=== PATIENT | male | born 1935 | race Caucasian/White ===

== ENCOUNTER 2018-11-29 22:19 | Emergency (ER) | payer BC, MEDICARE, OTHER ==
[2018-11-29] MEDS ORDERED: NS 0.9% 1000 ML** 1,000 ML IV ONE (23:19)
--- OUTSIDE RECORDS SUMMARY | 2018-11-29 23:35 | XMS REPORT | Continuity of Care Document ---
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 Payers Date Identification Numbers Payment Provider Subscriber Effective: 2018 Policy Number: [id number] [employer] Tito Mcintosh Options PayID: [id number] [address] Policy Number: [id number] [facility] Tito Mcintosh Group Number: NO CHARGE [facility] PayID: [id number] [place] [address] Problems Active Problems Provider Date Benign essential hypertension Onset: 10/19/2006 Allergic asthma without status Rosario Greenberg MD Onset: 02/16/2013 asthmaticus Essential hypertension Rosario Greenberg MD Onset: 02/16/2013 Bladder muscle dysfunction - Rosario Greenberg MD Onset: 02/16/2013 overactive Obesity Rosario Greenberg MD Onset: 02/16/2013 Allergic rhinitis due to pollen Rosario Greenberg MD Onset: 02/16/2013 Uncomplicated moderate persistent Bg Larios PA Onset: 10/09/2015 asthma Uncomplicated moderate persistent Haether Noble RN [facility] Onset: 2016 asthma Squamous cell carcinoma of skin of Bg Larios PA Onset: 11/15/2018 face Note: 10/2018 -- neg but 2mm margins Family History Date Family Member(s) Observation Comments Father due to Cancer, Lung () Mother due to Cancer, Colon () Social History Type Date Description Comments Sex Unknown Marital Status Marital Status Occupation Retired Tobacco Use Start: Unknown Nonsmoker ETOH Use Occasionally consumes alcohol ETOH Use Occasionally consumes alcohol Tobacco Use Start: Unknown Patient has never smoked Recreational Drug Use Never Used Drugs Tobacco Use Start: Unknown Patient has never smoked Smoking Status Reviewed: 11/18/18 Patient has never smoked Allergies, Adverse Reactions, Alerts Active Allergies Reaction Severity Comments Date Penicillin 02/04/2011 Inactive Allergies PCN 08/23/2004 Medications Active Medications SIG Qnty Indications Ordering Date Provider Celecoxib Take One Capsule 90caps M17.9 Heather Noble 11/10/2018 200mg By Mouth Once C RN [employer] Capsules Daily as Needed For Pain Santyl apply to wound 90gm M70.872 Gustabo, 11/02/2018 250Unit/GM area bid after Lilly Rascon MD Ointment bathing/soaking LEFT foot and cover [place] Cushions apply to LEFT foot 100units M70.872 Gustabo, 10/26/2018 Pads around wound to Lilly Rascon MD remove all pressure. Toviaz Heather Noble 09/23/2018 8mg Tablets ER C, RN [employer] 24HR Breo Ellipta 1 puff daily sample Heather Noble 08/18/2018 Lita RN [employer] 100-25mcg/Inh Aerosol Albuterol Sulfate via nebulizer 90Vials J45.40 Heather Noble 08/18/2018 treatment three Lita RN [employer] (2.5mg/3ML) 0.083% times a day as Nebulizer needed for asthma Olopatadine HCL 1-2 gtt once a day 2.500ml T78.49xA Heather Noble 2018 0.2% for eye allergy sx C, RN MS ULISES Solution Asprin One A Day Stroke Heather Noble 06/17/2018 325 Prevention C, RN [employer] Lisinopril-Hydrochlo 1 by mouth every 90tabs I10 Heather Noble 2018 rothiazide day C, RN [employer] 10-12.5mg Tablets Cpap For [place] Heather Noble 05/27/2018 Lita RN [employer] Clopidogrel 1 by mouth every 90tabs Heather Noble 05/27/2018 Bisulfate day C, RN [employer] 75mg Tablets Atorvastatin Calcium 1 by mouth every 90tabs Hetaher Noble 05/27/2018 day For Stroke VERO London [employer] 80mg Tablets Prevention/Cholest kendra Wrist Brace Carpal 1units G56.00 Rosario Greenberg, 02/21/2014 Tunnel/One Size LEFT And RIGHT Alexsandrac Zyrtec Allergy 1 tab po qday prn 30caps Rosario Greenberg, 02/16/2013 10mg MD Capsules History Medications Collagenase apply to wound q 2units Gustabo, 10/28/2018 - Powder day with Lilly Rascon MD 11/02/2018 wet-to-dry dressing Santyl apply to wound 90gm M70.872 Gustabo, 10/26/2018 - 250Unit/GM Ointment area bid after Lilly Rascon MD 10/28/2018 bathing/soaking LEFT foot and cover Prednisone take 3 tablets by 18tabs M25.551 David, 09/24/2018 - 20mg Tablets mouth for 3 days, DO Eduardo 10/13/2018 then 2 tablets by mouth for 3 days, then 1 tablet by mouth for 3 days Celecoxib Take One Capsule 90caps Real, 03/30/2018 - 200mg Capsules By Mouth Once A Heather London RN 05/27/2018 Day as Needed For [employer] Arthritis Pain Breo Ellipta 1 inhalation once samples Real, 11/06/2017 - 200-25mcg/Inh daily Heather London RN 06/17/2018 Aerosol [employer] Doxycycline Monohydrate 1 cap by mouth 14caps L03.115 Gustabo, 01/08/2017 - twice a day Lilly Rascon MD 01/15/2017 100mg Capsules Vesicare One Tab Daily ( N32.81 Real, 06/25/2016 - 10mg Tablets [place]) Heather London RN 09/23/2017 [employer] Oxybutynin Chloride ER 1 by mouth every N32.81 Gustabo, 01/07/2016 - 15mg day Lilly Rascon MD 06/25/2016 Tablets ER 24HR Lisinopril-Hydrochlorot Take One Tablet 90tabs I10 Real, 05/04/2014 - hiazide By Mouth Once Heather London RN 06/17/2018 20-12.5mg Tablets Daily [employer] Chlorpheniramine 477.0 Rosario Greenberg 02/21/2014 - [address] MD 02/20/2016 4mg Tablets Gabapentin take 1 capsule by 90caps 354.0 Rosario Greenberg 02/21/2014 - 300mg Capsules mouth three times MD Ariana 06/07/2014 daily - free samples Celebrex Take One Capsule 180caps M17.9 Real, 02/16/2013 - 200mg Capsules By Mouth Twice A Heather London RN 11/10/2018 Day [employer] [place]-3 Rosario Greenberg 02/16/2013 - Capsules MD Ariana 10/12/2014 ChlorpheniraRosario Knowles 02/16/[address] - [address] MD 02/21/2014 4mg Tablets Zyrtec Allergy 1 tab po qday prn 30caps 477.0 Rosario Greenberg 02/16/2013 - 10mg MD Ariana 10/12/2014 Capsules Aspirin 81 Rosario Greenberg 02/16/2013 - MD Ariana 06/17/2018 [place] 3 Rosario Greenberg 02/16/2013 - Capsules MD Ariana 06/17/[address] 1 po qd Rosario Greenberg 02/16/2013 - 81mg Tablets DR Ariana MD 05/27/2018 ChlorphenRosario Charles 02/16/2013 - [address] MD 08/18/2018 4mg Tablets Oxybutynin Chloride ER 1 tab qHS Rosario Greenberg 02/16/2013 - 10mg MD Ariana 06/17/2018 Tablets ER 24HR Advair Diskus 1 puff qday Rosario Greenberg 02/16/2013 - MD Ariana 05/27/2018 250-50mcg/Dose Aerosol Celebrex 1 po qd other day 30caps Rosario Greenberg 02/16/2013 - 200mg Capsules MD Ariana 03/30/2018 Lisinopril/Hydrochlorot 1 po qd 90tabs Rosario Greenberg 02/16/2013 - hiazide MD Ariana 05/27/2018 20-12.5mg Tablets Azithromycin 2 tabs day one 6tabs 786.2 Real, 06/15/2012 - 250mg Tablets and 1 tab daily Heather London RN 06/28/2012 till gone [employer] 465.9 Montelukast Sodium Take One Tablet 30tabs Regino, 02/16/2012 - By Mouth Once MD Mikhail 02/16/2013 10mg Tablets Daily Permethrin apply head to 60gm 133.0 Lilly Montejo 01/09/2012 - 5% Cream toe, leave on 8 MD Abiodun 02/16/2013 hrs rinse, repeat in 1 wk Singulair 1 po qd 30tabs Trabnaveen, 12/10/2011 - 10mg MD Mikhail 02/16/2012 Tablets Oxybutynin Chloride 1 by mouth 90tabs N32.81 Lilly Montejo 08/15/2011 - ER every day MD Abiodun 01/07/2016 10mg Tablets ER 24HR Lisinopril/Hydrochl Take 1 Tablet 90tabs 401.1 Rosario Greenberg 08/15/2011 - orothiazide By Mouth Once 05/04/2014 Daily 20-12.5mg Tablets Bactrim DS one tab po bid 20tabs 682.8 Heather Noble 02/27/2010 - for 10 days VERO London MS [facility] 08/15/2011 800-160mg Tablets Cpap Machine Dx: osas 1units Regino, 06/04/2009 - MD Mikhail 07/04/2009 Avelox 1 PO qd 5tabs 682.8 Lilly Montejo 06/09/2008 - 400mg MD Abiodun 12/11/2008 Tablets Enablex 1 PO qd 30tabs Trabnaveen, 10/01/2007 - 7.5mg MD Mikhail 08/15/2011 Tablets ER 24HR Lisinopril/Hydrochl 1 po qd 90tabs 401.1 Regino, 06/11/2007 - orothiazide MD Mikhail 08/15/2011 20-12.5 Tablets Benicar 1 po qd 30tabs 401.1 Regino, 2007 - 20mg MD Mikhail 06/11/2007 Tablets Avapro 1 po qd 30tabs 401.1 Regino, 06/03/2006 - 300mg MD Mikhail 2007 Tablets Levaquin qd 7tabs 527.2 Heather Noble 02/26/2005 - 500mg Lita RN [employer] 08/25/2005 Tablets Glucovance 1 po bid 60tabs Trabnaveen, 02/12/2005 - MD Mikhail 02/24/2005 2.5mg;500 mg Tablets Darvocet N 100 1-2 po q6h prn 60tabs 715.90 Trabout, 08/23/2004 - pain MD Mikhail 10/01/2007 100mg;650 mg Tablets Triamterene & HCTZ 1 po qd 30caps Trabout, 06/24/2004 - MD Mikhail 2007 25mg;37.5 mg Capsules Zyrtec 1 po qd prn 30tabs Trabout, 06/24/2004 - 10mg Tablets allergy sx MD Mikhail 2007 Celebrex Take One 90caps 715.36 Dionicio Rosario Yin, 06/24/2004 - 200mg Capsule By 02/21/2014 Capsules Mouth Once Daily Advair Diskus inhale 1 puff 180units J45.40 Heather Noble 06/24/2004 - by mouth twice CVERO [employer] 08/18/2018 250-50mcg/Dose a day. Aerosol Atacand 1 po qd 30tabs 401.1 Trabout, 05/10/2004 - 32mg MD Mikhail 06/03/2006 Tablets Myrbetriq 1 by mouth Unknown - 50mg every day 09/23/2018 Tablets ER 24HR Medications Administered in Office Medication SIG Qnty Indications Ordering Provider Date Inj Triamcinolone (Kenalog) Im 10 Eduardo Hernandez DO 10/13/2018 MG, Injection Immunizations CPT Code Status Date Vaccine Lot # [id number] Given 05/24/2018 Influenza Vac, Quadrivalent, Split, 0.5mL Dosage, Im Use 78697 Given 05/24/2018 Prevnar 13 Pneumococal Conjugate Vaccine 35669 Given 03/16/2017 Influenza Vac, Quadrivalent, Split, 0.5mL Dosage, [id number] Im Use 32308 Given 03/16/2017 Influenza Vac, Quadrivalent, Split, 0.5mL Dosage, Im Use Q2038 Given 06/07/2014 Fluzone Trivalent Immunization [id number] Q2038 Given 06/15/2012 Fluzone Trivalent Immunization [id number] Q2038 Given 02/04/2011 Fluzone Trivalent Immunization 41479 Given 02/04/2011 Afluria Or Fluvirin Flu Vac Intramuscular 27236 Given 02/04/2011 Afluria Or Fluvirin Flu Vac Intramuscular [id number] 21378 Given 02/28/2010 Afluria Or Fluvirin Flu Vac Intramuscular [id number] 28536 Given 02/27/2010 Tetanus And Diptheria Toxoids For Adult [id number] Use-preservative free [id number] Refused 10/22/2016 Zoster (Zostavax) [id number] Refused 10/22/2016 Pneumococcal 23 Immunization Adult Or Immunosuppressed Patient [id number] Refused 10/22/2016 Prevnar 13 Pneumococal Conjugate Vaccine 33890 Refused 06/25/2016 Influenza Vac, Quadrivalent, Split, 0.5mL Dosage, Im Use Vital Signs Date Vital Result Comment 11/18/2018 1:24pm Weight 208.00 lb Heart Rate 91 /min BP Systolic 94 mmHg BP Diastolic 62 mmHg Height 70 inches 5'10" BMI (Body Mass Index) 29.8 kg/m2 11/10/2018 9:51am Weight 206.00 lb Heart Rate 64 /min BP Systolic 133 mmHg BP Diastolic 71 mmHg Height 70 inches 5'10" BMI (Body Mass Index) 29.6 kg/m2 10/26/2018 12:20pm Weight 214.00 lb Heart Rate 80 /min BP Systolic 128 mmHg BP Diastolic 80 mmHg Height 70 inches 5'10" BMI (Body Mass Index) 30.7 kg/m2 10/13/2018 9:24am Weight 210.00 lb Heart Rate 81 /min Height 70 inches 5'10" BMI (Body Mass Index) 30.1 kg/m2 Pain Level 0 RIGHT hip 09/24/2018 11:23am Weight 210.00 lb Heart Rate 76 /min Height 67 inches 5'7" BMI (Body Mass Index) 32.9 kg/m2 Pain Level 4 09/23/2018 12:39pm Weight 211.50 lb Heart Rate 88 /min BP Systolic 115 mmHg BP Diastolic 71 mmHg Height 67 inches 5'7" BMI (Body Mass Index) 33.1 kg/m2 08/18/2018 1:17pm Weight 213.19 lb Heart Rate 77 /min BP Systolic 107 mmHg BP Diastolic 64 mmHg Height 67 inches 5'7" BMI (Body Mass Index) 33.4 kg/m2 06/17/2018 2:20pm Weight 209.00 lb Heart Rate 71 /min BP Systolic 143 mmHg BP Diastolic 70 mmHg Height 67 inches 5'7" BMI (Body Mass Index) 32.7 kg/m2 11/06/2017 10:00am Weight 207.25 lb Heart Rate 84 /min BP Systolic 125 mmHg BP Diastolic 85 mmHg Height 67 inches 5'7" BMI (Body Mass Index) 32.5 kg/m2 05/08/2017 11:20am Weight 206.31 lb Heart Rate 68 /min BP Systolic 130 mmHg BP Diastolic 79 mmHg Height 67 inches 5'7" BMI (Body Mass Index) 32.3 kg/m2 03/16/2017 10:28am Weight 211.00 lb Heart Rate 88 /min BP Systolic 112 mmHg BP Diastolic 77 mmHg Height 67 inches 5'7" BMI (Body Mass Index) 33.0 kg/m2 Urine Dipstick - Blood NEGATIVE Urine Dipstick - Protein NEGATIVE Urine Dipstick - Glucose NEGATIVE Urine Dipstick - Leukocytes NEGATIVE 01/08/2017 1:39pm Weight 209.38 lb Heart Rate 100 /min BP Systolic 139 mmHg BP Diastolic 85 mmHg Height 67 inches 5'7" BMI (Body Mass Index) 32.8 kg/m2 10/22/2016 1:10pm Weight 211.38 lb Heart Rate 83 /min BP Systolic 123 mmHg BP Diastolic 76 mmHg Height 67 inches 5'7" BMI (Body Mass Index) 33.1 kg/m2 06/25/2016 2:07pm Weight 215.50 lb Heart Rate 96 /min BP Systolic 128 mmHg BP Diastolic 80 mmHg Height 67 inches 5'7" BMI (Body Mass Index) 33.7 kg/m2 02/20/2016 1:22pm Body Temperature 97.0 F Weight 213.50 lb Heart Rate 70 /min BP Systolic 131 mmHg BP Diastolic 77 mmHg Height 70 inches 5'10" BMI (Body Mass Index) 30.6 kg/m2 10/09/2015 2:44pm Weight 216.25 lb Heart Rate 71 /min BP Systolic 137 mmHg BP Diastolic 83 mmHg Height 70 inches 5'10" BMI (Body Mass Index) 31.0 kg/m2 Urine Dipstick - Blood NEGATIVE Urine Dipstick - Protein NEGATIVE Urine Dipstick - Glucose NEGATIVE Urine Dipstick - Leukocytes NEGATIVE Right Visual Acuity Distance 20/25 Left Visual Acuity Distance 20/25 Both 20/20 03/15/2015 1:44pm Weight 219.38 lb Heart Rate 64 /min BP Systolic 129 mmHg BP Diastolic 69 mmHg Height 68 inches 5'8" BMI (Body Mass Index) 33.4 kg/m2 Urine Dipstick - Blood NEGATIVE Urine Dipstick - Protein NEGATIVE Urine Dipstick - Glucose NEGATIVE Urine Dipstick - Leukocytes NEGATIVE 10/12/2014 10:53am Weight 216.00 lb Heart Rate 80 /min BP Systolic 120 mmHg BP Diastolic 70 mmHg Height 70 inches 5'10" BMI (Body Mass Index) 31.0 kg/m2 09/11/2014 10:48am Weight 212.00 lb Heart Rate 63 /min BP Systolic 133 mmHg BP Diastolic 79 mmHg Height 70 inches 5'10" BMI (Body Mass Index) 30.4 kg/m2 08/07/2014 1:21pm Weight 212.00 lb Heart Rate 106 /min BP Systolic 144 mmHg BP Diastolic 95 mmHg Height 70 inches 5'10" BMI (Body Mass Index) 30.4 kg/m2 06/07/2014 1:07pm Weight 216.00 lb Heart Rate 87 /min BP Systolic 112 mmHg BP Diastolic 79 mmHg Height 70 inches 5'10" BMI (Body Mass Index) 31.0 kg/m2 02/21/2014 9:48am Weight 212.00 lb Heart Rate 70 /min BP Systolic 115 mmHg BP Diastolic 77 mmHg Height 70 inches 5'10" BMI (Body Mass Index) 30.4 kg/m2 Urine Dipstick - Blood NEGATIVE Urine Dipstick - Protein NEGATIVE Urine Dipstick - Glucose NEGATIVE Right Visual Acuity Distance 20/20 Left Visual Acuity Distance 20/20 Both 20/20 02/16/2013 10:44am Weight 224.00 lb Heart Rate 62 /min BP Systolic 127 mmHg BP Diastolic 73 mmHg Height 68 inches 5'8" BMI (Body Mass Index) 34.1 kg/m2 Urine Dipstick - Blood NEGATIVE Urine Dipstick - Protein NEGATIVE Urine Dipstick - Glucose NEGATIVE 06/28/2012 9:41am Weight 219.00 lb Heart Rate 63 /min BP Systolic 122 mmHg BP Diastolic 67 mmHg 06/15/2012 2:44pm Weight 219.00 lb Heart Rate 80 /min BP Systolic 122 mmHg BP Diastolic 78 mmHg 03/16/2012 3:49pm Weight 224.00 lb Heart Rate 84 /min BP Systolic 126 mmHg BP Diastolic 74 mmHg Height 68 inches 5'8" BMI (Body Mass Index) 34.1 kg/m2 01/09/2012 9:20am Weight 221.00 lb Heart Rate 72 /min BP Systolic 122 mmHg BP Diastolic 78 mmHg Height 70 inches 5'10" BMI (Body Mass Index) 31.7 kg/m2 12/10/2011 2:26pm Weight 220.00 lb Heart Rate 82 /min BP Systolic 140 mmHg BP Diastolic 78 mmHg 08/15/2011 12:57pm Weight 232.00 lb Heart Rate 86 /min BP Systolic 126 mmHg BP Diastolic 75 mmHg 02/04/2011 2:11pm Weight 220.00 lb Heart Rate 80 /min BP Systolic 136 mmHg BP Diastolic 78 mmHg Height 67.75 inches 5'7.75"With Shoes BMI (Body Mass Index) 33.7 kg/m2 03/05/2010 12:52pm Weight 233.00 lb Heart Rate 77 /min BP Systolic 110 mmHg BP Diastolic 66 mmHg 03/01/2010 4:05pm Body Temperature 97.4 F Weight 229.00 lb Heart Rate 80 /min BP Systolic 110 mmHg BP Diastolic 70 mmHg 04/18/2009 6:26pm Weight 227.00 lb Heart Rate 71 /min BP Systolic 136 mmHg BP Diastolic 72 mmHg 12/11/2008 10:10am Weight 233.00 lb Heart Rate 74 /min BP Systolic 115 mmHg BP Diastolic 72 mmHg 11/09/2008 9:24am Body Temperature 97.3 F Weight 234.00 lb Heart Rate 94 /min BP Systolic 113 mmHg BP Diastolic 70 mmHg 11/07/2008 11:18am Body Temperature 97.4 F Weight 236.00 lb Heart Rate 64 /min BP Systolic 118 mmHg BP Diastolic 68 mmHg 06/05/2008 10:00am Weight 231.00 lb Heart Rate 84 /min BP Systolic 113 mmHg BP Diastolic 73 mmHg Height 70 inches 5'10" BMI (Body Mass Index) 33.1 kg/m2 02/04/2008 9:48am Weight 248.00 lb Heart Rate 68 /min BP Systolic 110 mmHg BP Diastolic 62 mmHg Height 70 inches 5'10" BMI (Body Mass Index) 35.6 kg/m2 10/01/2007 10:51am Weight 246.00 lb Heart Rate 87 /min BP Systolic 116 mmHg BP Diastolic 66 mmHg Height 70 inches 5'10" BMI (Body Mass Index) 35.3 kg/m2 06/11/2007 1:42pm Heart Rate 75 /min BP Systolic 131 mmHg BP Diastolic 80 mmHg Height 70 inches 5'10" 2007 2:06pm Heart Rate 87 /min BP Systolic 126 mmHg BP Diastolic 74 mmHg Height 70 inches 5'10" 10/19/2006 2:08pm Heart Rate 90 /min BP Systolic 150 mmHg BP Diastolic 84 mmHg Height 70 inches 5'10" Urine Dipstick - Blood NEGATIVE Urine Dipstick - Protein NEGATIVE Urine Dipstick - Glucose NEGATIVE 09/30/2006 11:49am Heart Rate 80 /min BP Systolic 120 mmHg BP Diastolic 80 mmHg Height 68 inches 5'8" 09/21/2006 9:36am Weight 244.00 lb Heart Rate 80 /min BP Systolic 122 mmHg BP Diastolic 68 mmHg Height 68 inches 5'8" BMI (Body Mass Index) 37.1 kg/m2 07/06/2006 10:32am Weight 251.00 lb Heart Rate 70 /min BP Systolic 142 mmHg BP Diastolic 80 mmHg Height 68 inches 5'8" BMI (Body Mass Index) 38.2 kg/m2 02/27/2006 10:06am Weight 239.00 lb Heart Rate 62 /min BP Systolic 132 mmHg BP Diastolic 70 mmHg Height 68 inches 5'8" BMI (Body Mass Index) 36.3 kg/m2 Urine Dipstick - Blood NEGATIVE Urine Dipstick - Protein NEGATIVE Urine Dipstick - Glucose NEGATIVE 08/25/2005 10:13am Weight 251.00 lb Heart Rate 66 /min BP Systolic 118 mmHg BP Diastolic 78 mmHg 05/14/2005 4:29pm Weight 253.00 lb Heart Rate 80 /min BP Systolic 118 mmHg BP Diastolic 71 mmHg 02/26/2005 9:09am Body Temperature 97.7 F Heart Rate 70 /min BP Systolic 122 mmHg BP Diastolic 79 mmHg 02/24/2005 10:42am Weight 246.00 lb Heart Rate 71 /min BP Systolic 121 mmHg BP Diastolic 77 mmHg 08/23/2004 4:09pm Weight 249.00 lb Heart Rate 85 /min BP Systolic 131 mmHg BP Diastolic 69 mmHg Results Test Date Facility Test Result H/L Range Note Laboratory test 11/10/2018 [facility] SEE NOTE 1 finding FCMG CBC W/Auto 08/25/2018 [facility] WBC 7.4 K/uL 4.8-10.8 Differential [phone] RBC 4.17 M/uL Low 4.60-6.20 Hemoglobin 13.4 gm/dL Low 13.5-18.0 Hematocrit 39.0 % Low 41.0-53.0 MCV 93.4 fL 80.0-100.0 MCHC 34.3 % 30.0-36.5 MCH 32.0 pg 27.0-34.0 RDW 12.4 % 11.0-15.0 Platelet 195 K/uL 130-450 MPV 6.1 fL 6.0-12.0 NE% 65 % 37-80 Ly% 19 % 10-50 Mo% 7 % 0-12 Eo% 8 % <=8 Ba% 1 % <=3 NE# 4.9 K/uL 1.8-8.6 Lymph# 1.4 K/uL 0.5-5.0 [place]# 0.5 K/uL 0.0-1.3 Eos# 0.6 K/uL 0.0-0.9 Baso# 0.1 K/ul 0.0-0.3 Comprehensive Panel 08/25/2018 [facility] Sodium 145 mmol/L 136-145 [phone] Potassium 4.2 mmol/L 3.5-5.2 Chloride 112 mmol/L High 100-108 Co2 25 mmol/L 21-32 Glucose 94 mg/dL 70-100 BUN 20 mg/dL 7-21 Creatinine 0.9 mg/dL 0.6-1.3 2 Calcium 9.0 mg/dL 8.5-10.8 GFR >60 T Bili 2.1 mg/dL High 0.0-1.2 T Protein 6.4 gm/dL 6.4-8.2 Albumin 4.1 gm/dL 3.2-4.6 Alk Phos 92 U/L 40-150 Alt (SGPT) 25 U/L 0-55 Ast (Sgot) 27 U/L 5-37 Lipid Panel 08/25/2018 [facility] Cholesterol 114 mg/dL Low 120-200 [phone] Triglycerides 81 mg/dL 0-149 HDL Cholesterol 45 mg/dL 40-60 Chol/HDL Ratio 2.5 <=4.9 3 LDL Direct 51 mg/dL 0-99 VLDL Calculated 16 Order 07/23/2018 Other Occupational Therapy Eval <pending> [phone] Physical Therapy <pending> Lipid 11/06/2017 [facility] Cholesterol 191 mg/dL 50-199 Triglycerides 82 mg/dL 30-200 HDL 52 mg/dL 29-71 4 Chol/ HDL Ratio 3.7 ratio Low 4.0-6.7 VLDL 16 mg/dL 2-29 LDL (Calc) 122 mg/dL High 20-99 5 CBC with Auto Diff-fcmg 11/06/2017 [facility] WBC 6.0 K/uL 4.1-11.0 RBC 4.34 M/uL Low 4.60-6.10 Hemoglobin 13.6 gm/dL 13.5-18.0 Hematocrit 39.5 % Low 41.0-53.0 MCV 91.1 fL 80.0-97.0 MCH 31.3 pg 27.0-32.0 MCHC 34.3 g/dL 32.0-36.0 RDW 13.6 % 11.5-14.5 PLT Count 207 K/ul 140-400 MPV 7.3 FL 7.1-10.7 Neutrophil 64.8 % 35.0-75.0 Lymphocyte 19.5 % 16.0-52.0 Monocyte 8.0 % 2.0-10.0 Eosinophil 6.9 % High 0.0-5.0 Basophil 0.8 % 0.0-4.0 Abs Neutrophils 3.9 K/uL 2.1-8.0 Abs Lymphocytes 1.2 K/uL 0.8-5.5 Abs Monocytes 0.5 K/uL 0.1-1.0 Abs Eosinophils 0.4 K/uL 0.0-0.5 Abs Basophils 0.0 K/uL 0.0-0.3 Comprehensive Met Panel-[facility]CMG 11/06/2017 [facility] Sodium 138 mmol/L 135- 146 6 Potassium 4.5 mmol/L 3.5-5.2 Chloride# 104 mmol/L 97-110 7 Carbon Dioxide 25 mmol/L 24-34 Glucose 100 mg/dL 70-105 BUN 25 mg/dL 6-26 Creatinine 1.0 mg/dL 0.5-1.4 Calcium 9.5 mg/dL 8.5-10.2 Total Protein 6.4 g/dL 6.0-8.0 Albumin 4.2 g/dL 3.6-4.9 Globulin 2.2 g/dL 2.0-3.5 A/G Ratio 1.9 Ratio 1.0-2.2 Total Bilirubin 1.1 mg/dL 0.1-1.3 Alkaline Phosphatase 81 U/L 24-140 Alt 25 U/L 3-42 Ast 28 U/L 8-42 Kera Egfr >60 >60 8 Non Kera Egfr >60 >60 9 Anion Gap 9 mmol/L 5-15 10 Comprehensive Met Panel-[facility]CMG 05/08/2017 [facility] Sodium 141 mmol/L 135- 146 11 Potassium 4.8 mmol/L 3.5-5.2 Chloride# 102 mmol/L 97-110 12 Carbon Dioxide 29 mmol/L 24-34 Glucose 86 mg/dL 70-105 Creatinine 0.9 mg/dL 0.5-1.4 Calcium 9.6 mg/dL 8.5-10.2 Total Protein 6.6 g/dL 6.0-8.0 Albumin 4.4 g/dL 3.6-4.9 Globulin 2.2 g/dL 2.0-3.5 A/G Ratio 2.0 Ratio 1.0-2.2 Total Bilirubin 1.0 mg/dL 0.1-1.3 Alkaline Phosphatase 86 U/L 24-140 Alt 24 U/L 3-42 Ast 27 U/L 8-42 Kera Egfr >60 >60 13 Non Kera Egfr >60 >60 14 Anion Gap 10 mmol/L 7-16 15 BUN 26 mg/dL 6-26 CBC With Auto Diff 05/08/2017 [facility] WBC 6.1 K/uL 4.1-11.0 RBC 4.40 M/uL Low 4.60-6.10 Hemoglobin 14.0 gm/dL 13.5-18.0 Hematocrit 40.7 % Low 41.0-53.0 MCV 92.4 fL 80.0-97.0 MCH 31.8 pg 27.0-32.0 MCHC 34.5 g/dL 32.0-36.0 RDW 13.7 % 11.5-14.5 PLT Count 197 K/ul 140-400 MPV 6.8 FL Low 7.1-10.7 Neutrophil 66.2 % 35.0-75.0 Lymphocyte 21.5 % 16.0-52.0 Monocyte 8.4 % 2.0-10.0 Eosinophil 3.4 % 0.0-5.0 Basophil 0.5 % 0.0-4.0 Abs Neutrophils 4.1 K/uL 2.1-8.0 Abs Lymphocytes 1.3 K/uL 0.8-5.5 Abs Monocytes 0.5 K/uL 0.1-1.0 Abs Eosinophils 0.2 K/uL 0.0-0.5 Abs Basophils 0.0 K/uL 0.0-0.3 CBC With Auto Diff 10/31/2016 [facility] WBC 7.4 K/uL 4.1-11.0 16 RBC 4.32 M/uL Low 4.60-6.10 Hemoglobin 13.4 gm/dL Low 13.5-18.0 Hematocrit 39.4 % Low 41.0-53.0 MCV 91.2 fL 80.0-97.0 MCH 30.9 pg 27.0-32.0 MCHC 33.9 g/dL 32.0-36.0 RDW 13.5 % 11.5-14.5 PLT Count 184 K/ul 140-400 Neutrophil 70.8 % 35.0-75.0 Lymphocyte 16.4 % 16.0-52.0 Monocyte 9.4 % 2.0-10.0 Eosinophil 2.5 % 0.0-5.0 Basophil 0.9 % 0.0-4.0 Abs Neutrophils 5.2 K/uL 2.1-8.0 Abs Lymphocytes 1.2 K/uL 0.8-5.5 Abs Monocytes 0.7 K/uL 0.1-1.0 Abs Eosinophils 0.2 K/uL 0.0-0.5 Abs Basophils 0.1 K/uL 0.0-0.3 Comprehensive Metabolic (CMP) 10/31/2016 [facility] Sodium 140 mmol/L 135- 146 17 Potassium 4.9 mmol/L 3.5-5.2 Chloride# 105 mmol/L 97-110 18 Carbon Dioxide 27 mmol/L 24-34 Glucose 94 mg/dL 70-105 BUN 30 mg/dL High 6-26 Creatinine 1.1 mg/dL 0.5-1.4 Calcium 9.4 mg/dL 8.5-10.2 Total Protein 6.0 g/dL 6.0-8.0 Albumin 4.1 g/dL 3.6-4.9 Globulin 1.9 g/dL Low 2.0-3.5 A/G Ratio 2.2 Ratio 1.0-2.2 Total Bilirubin 0.7 mg/dL 0.1-1.3 Alkaline Phosphatase 77 U/L 24-140 Alt 18 U/L 3-42 Ast 23 U/L 8-42 Kera Egfr >60 >60 19 Non Kera Egfr >60 >60 20 Anion Gap 13 mmol/L 7-16 21 Laboratory test finding 10/31/2016 [facility] PSA 0.370 ng/mL 0.000-4.000 22 Lipid 10/31/2016 [facility] Cholesterol 168 mg/dL 50-199 Triglycerides 64 mg/dL 30-200 HDL 52 mg/dL 29-71 23 Chol/ HDL Ratio 3.2 ratio Low 4.0-6.7 VLDL 13 mg/dL 2-29 LDL (Calc) 103 mg/dL High 20-99 24 CBC With Auto Diff 02/20/2016 [facility] WBC 6.4 K/uL 4.1-11.0 RBC 4.39 M/uL Low 4.60-6.10 Hemoglobin 13.6 gm/dL 13.5-18.0 Hematocrit 40.7 % Low 41.0-53.0 MCV 92.8 fL 80.0-97.0 MCH 31.0 pg 27.0-32.0 MCHC 33.4 g/dL 32.0-36.0 RDW 13.4 % 11.5-14.5 PLT Count 203 K/ul 140-400 Neutrophil 65.6 % 35.0-75.0 Lymphocyte 20.9 % 16.0-52.0 Monocyte 8.9 % 2.0-10.0 Eosinophil 3.5 % 0.0-5.0 Basophil 1.1 % 0.0-4.0 Abs Neutrophils 4.2 K/uL 2.1-8.0 Abs Lymphocytes 1.3 K/uL 0.8-5.5 Abs Monocytes 0.6 K/uL 0.1-1.0 Abs Eosinophils 0.2 K/uL 0.0-0.5 Abs Basophils 0.1 K/uL 0.0-0.3 Comprehensive Metabolic (CMP) 10/10/2015 [facility] Sodium 135 mmol/L 134- 142 Potassium 5.0 mmol/L 3.5-5.2 Chloride 103 mmol/L 97-109 Carbon Dioxide 27 mmol/L 24-34 Glucose 97 mg/dL 70-105 BUN 22 mg/dL 6-26 Creatinine 0.9 mg/dL 0.5-1.4 Calcium 9.2 mg/dL 8.5-10.2 Total Protein 6.2 g/dL 6.0-8.0 Albumin 4.0 g/dL 3.6-4.9 Globulin 2.2 g/dL 2.0-3.5 A/G Ratio 1.8 Ratio 1.0-2.2 Total Bilirubin 0.9 mg/dL 0.1-1.3 Alkaline Phosphatase 63 U/L 24-140 Alt 23 U/L 3-42 Ast 28 U/L 8-42 Anion Gap 10 mmol/L 6-14 Kera Egfr >60 >60 25 Non Kera Egfr >60 >60 26 Laboratory test finding 10/10/2015 [facility] CRP-High 1.08 mg/L 0.00-9.90 27 PSA 0.270 ng/mL 0.000-4.000 28 Lipid 10/10/2015 [facility] Cholesterol 183 mg/dL 50-199 Triglycerides 49 mg/dL 30-200 HDL 57 mg/dL 29-71 29 Chol/ HDL Ratio 3.2 ratio Low 4.0-6.7 VLDL 10 mg/dL 2-29 LDL (Calc) 116 mg/dL High 20-99 30 Laboratory test finding 10/10/2015 [facility] TSH 3.15 uIU/mL 0.35-4.94 CBC With Auto Diff 10/10/2015 [facility] WBC 5.8 K/uL 4.1-11.0 RBC 4.44 M/uL Low 4.60-6.10 Hemoglobin 13.9 gm/dL 13.5-18.0 Hematocrit 40.8 % Low 41.0-53.0 MCV 91.7 fL 80.0-97.0 MCH 31.2 pg 27.0-32.0 MCHC 34.0 g/dL 32.0-36.0 RDW 13.4 % 11.5-14.5 PLT Count 188 K/ul 140-400 Neutrophil 70.5 % 35.0-75.0 Lymphocyte 17.4 % 16.0-52.0 Monocyte 9.0 % 2.0-10.0 Eosinophil 2.6 % 0.0-5.0 Basophil 0.5 % 0.0-4.0 Abs Neutrophils 4.1 K/uL 2.1-8.0 Abs Lymphocytes 1.0 K/uL 0.8-5.5 Abs Monocytes 0.5 K/uL 0.1-1.0 Abs Eosinophils 0.1 K/uL 0.0-0.5 Abs Basophils 0.0 K/uL 0.0-0.3 CBC With Auto Diff 09/11/2014 [facility] WBC 5.6 K/uL 4.1-11.0 31 RBC 4.63 M/uL 4.60-6.10 Hemoglobin 14.6 gm/dL 13.5-18.0 Hematocrit 43.5 % 41.0-53.0 MCV 93.9 fL 80.0-97.0 MCH 31.6 pg 27.0-32.0 MCHC 33.7 g/dL 32.0-36.0 RDW 13.5 % 11.5-14.5 PLT Count 180 K/ul 140-400 Neutrophil 64.3 % 35.0-75.0 Lymphocyte 22.1 % 16.0-52.0 Monocyte 8.7 % 2.0-10.0 Eosinophil 4.3 % 0.0-5.0 Basophil 0.6 % 0.0-4.0 Abs Neutrophils 3.6 K/uL 2.1-8.0 Abs Lymphocytes 1.2 K/uL 0.8-5.5 Abmon 0.5 K/uL 0.1-1.0 Abs Eosinophils 0.2 K/uL 0.0-0.5 Abs Basophils 0.0 K/uL 0.0-0.3 Comprehensive Metabolic (CMP) 09/11/2014 [facility] Sodium 138 mmol/L 134- 142 Potassium 4.8 mmol/L 3.5-5.2 Chloride 104 mmol/L 97-109 Carbon Dioxide 29 mmol/L 24-34 Glucose 102 mg/dL 70-105 BUN 24 mg/dL 6-26 Creatinine 0.9 mg/dL 0.5-1.4 Calcium 9.6 mg/dL 8.5-10.2 Total Protein 6.8 g/dL 6.0-8.0 Albumin 4.5 g/dL 3.6-4.9 Globulin 2.3 g/dL 2.0-3.5 A/G Ratio 2.0 Ratio 1.0-2.2 Total Bilirubin 1.0 mg/dL 0.1-1.3 Alkaline Phosphatase 69 U/L 24-140 Alt 23 U/L 3-42 Ast 24 U/L 8-42 Anion Gap 10 mmol/L 6-14 Kera Egfr >60 >60 32 Non Kera Egfr >60 >60 33 Laboratory test finding 09/11/2014 [facility] TSH 2.10 uIU/mL 0.34-5.60 Lipid 09/11/2014 [facility] Cholesterol 204 mg/dL High 50-199 Triglycerides 48 mg/dL 30-200 HDL 57 mg/dL 29-71 34 Chol/ HDL Ratio 3.6 ratio Low 4.0-6.7 VLDL 10 mg/dL 2-29 LDL (Calc) 137 mg/dL High 20-99 35 Laboratory test finding 09/11/2014 [facility] PSA 0.220 ng/mL 0.000-4.000 36 Vitamin B12 428 pg/mL 180-914 Comprehensive Metabolic (CMP) 08/15/2011 [facility] Sodium 136 mmol/L 134- 142 37 Potassium 4.4 mmol/L 3.5-5.2 Chloride 103 mmol/L 97-109 Carbon Dioxide 25 mmol/L 24-34 Glucose 119 mg/dL High 70-105 BUN 23 mg/dL 6-26 Creatinine 0.9 mg/dL 0.5-1.4 Calcium 9.3 mg/dL 8.5-10.2 BUN/CR 25 ratio High 12-20 Total Protein 6.4 g/dL 6.0-8.0 Albumin 4.2 g/dL 3.6-4.9 Globulin 2.2 g/dL 2.0-3.5 A/G Ratio 1.9 Ratio 1.0-2.2 Total Bilirubin 0.9 mg/dL 0.1-1.3 Alkaline Phosphatase 70 U/L 24-140 Alt 23 U/L 3-42 Ast 26 U/L 8-42 Anion Gap 12 mmol/L 6-14 Kera Egfr >60 >60 38 Non Kera Egfr >60 >60 39 Lipid 08/15/2011 [facility] Cholesterol 194 mg/dL 50-199 Triglycerides 214 mg/dL High 30-200 HDL 51 mg/dL 29-71 40 Chol/ HDL Ratio 3.8 ratio Low 4.0-6.7 VLDL 43 mg/dL High 2-29 LDL (Calc) 100 mg/dL 20-129 41 CBC With Auto Diff 08/15/2011 [facility] WBC 6.8 K/uL 4.1-11.0 RBC 4.47 M/uL Low 4.60-6.10 Hemoglobin 14.3 gm/dL 13.5-18.0 Hematocrit 40.8 % Low 41.0-53.0 MCV 91.3 fL 80.0-97.0 MCH 32.1 pg High 27.0-32.0 MCHC 35.2 g/dL 32.0-36.0 RDW 13.3 % 11.5-14.5 PLT Count 168 K/ul 140-400 Neutrophil 68.5 % 35.0-75.0 Lymphocyte 17.7 % 16.0-52.0 Monocyte 8.2 % 2.0-10.0 Eosinophil 4.9 % 0.0-5.0 Basophil 0.7 % 0.0-4.0 Abs Neutrophils 4.6 K/uL 2.1-8.0 Abs Lymphocytes 1.2 K/uL 0.8-5.5 Abs Monocytes 0.6 K/uL 0.1-1.0 Abs Eosinophils 0.3 K/uL 0.0-0.5 Abs Basophils 0.0 K/uL 0.0-0.3 Z#Hemoglobin A1c With Est Gluc 08/15/2011 [facility] Hemoglobin A1c 6.0 % High 4.1-5.[address] Glucose 126 71-140 Wound Culture - 02/28/2010 [facility] (Do not Use) Wound Culture (SEE NOTE ) 42, 43 LA [facility] [address] [phone] Specimen Description - LA N/A Special Requests - LA N/A Result - LA N/A Report Status - LA N/A [facility] 12/11/2008 [facility] (Do not Use) Sodium 139 mmol/L 135-144 44 [facility] [place] [address] [phone] Potassium 4.7 mmol/L 3.6-5.2 Chloride 105 mmol/L 97-110 Carbon Dioxide 28 mmol/L 23-32 Glucose 106 mg/dL High 70-105 BUN 17 mg/dL 6-22 Creatinine 1.1 mg/dL 0.5-1.3 BUN/CR 15 Ratio 12.0-20.0 Calcium 9.5 mg/dL 8.6-10.2 Total Protein 6.0 g/dL 5.8-7.8 Albumin 3.9 g/dL 3.5-4.8 Globulin 2.1 g/dL 2.0-3.5 A/G Ratio 1.9 Ratio 1.0-2.2 Total Bilirubin 1.3 mg/dL High 0.3-1.2 Alkaline Phosphatase 66 U/L 24-140 Alt 27 U/L 5-45 Ast 29 U/L 12-40 Anion Gap 11 mmol/L 8-16 GFR Calculation > 60 mL/min 60-175 45 GFR For > 60 mL/min 60-175 46 Hemoglobin A1c With 12/11/2008 [facility] (Do not Use) Hemoglobin A1c 5.8 % 4.1-6.5 Est Glucos [facility] [place] [address] [phone] Estimated Average Glucose Calc. 119 71-140 Lipid Panel 12/11/2008 [facility] (Do not Use) Cholesterol 198 mg/dL 50 -199 [facility] [place] [address] [phone] Triglycerides 91 mg/dL 10-150 HDL 54 mg/dL 29-71 47 Chol/HDL Ratio 3.7 Ratio Low 4.0-6.7 48 VLDL 18 mg/dL 2-29 LDL (Calc) 126 mg/dL 20-129 49 CBC With Auto Diff 12/11/2008 [facility] (Do not Use) WBC 6.8 K/ul 4.0- 10.9 [facility] [place] [address] [phone] RBC 4.37 M/ul Low 4.70-6.10 Hemoglobin 13.9 GM/dl 13.5-18.0 Hematocrit 39.9 % Low 42.0-52.0 MCV 91.3 FL 80.0-97.0 MCH 31.9 pg High 27.0-31.0 MCHC 34.9 g/dL 32.0-36.0 RDW 13.3 % 11.5-14.5 Platelet Count 201 K/ul 140-440 Neutrophils 75.4 % High 50-70 Lymphocytes 16.3 % Low 20-44 Monocytes 5.8 % 2-9 Eosinophil 1.8 % 0-4 Basophil 0.7 % 0-2 Absolute Neutrophils 5.1 K/ul 2.05-7.63 Absolute Lymphocytes 1.1 K/ul 0.8-4.8 Absolute Monocytes 0.4 K/ul 0.1-1.0 Absolute Eosinophils 0.1 K/ul 0.1-0.5 Absolute Basophils 0.0 K/ul 0.0-0.3 Hematology Comment (Comm2) N/A Laboratory test 02/04/2008 [facility] (Do not Use) Hemoglobin A1c 5.9 % 4.1-6.5 50 finding [facility] [place] [address] [phone] Lipid Panel 02/04/2008 [facility] (Do not Use) Cholesterol 198 mg/dL 50 -199 [facility] [place] [address] [phone] Triglycerides 77 mg/dL 10-150 HDL 51 mg/dL 29-71 51 Chol/HDL Ratio 3.9 Ratio 52 VLDL 15 mg/dL LDL (Calc) 132 mg/dL High 20-129 53 CBC With Auto Diff 02/04/2008 [facility] (Do not Use) WBC 6.9 K/ul 4.0- 10.9 [facility] [place] [address] [phone] RBC 4.18 M/ul Low 4.70-6.10 Hemoglobin 13.1 GM/dl Low 13.5-18.0 Hematocrit 38.1 % Low 42.0-52.0 MCV 91.0 FL 80.0-97.0 MCH 31.2 pg High 27.0-31.0 MCHC 34.3 g/dL 32.0-36.0 RDW 13.5 % 11.5-14.5 Platelet Count 195 K/ul 140-440 Neutrophils 69.4 % 50-70 Lymphocytes 17.4 % Low 20-44 Monocytes 7.7 % 2-9 Eosinophil 4.2 % High 0-4 Basophil 1.3 % 0-2 Absolute Neutrophils 4.8 K/ul 2.05-7.63 Absolute Lymphocytes 1.2 K/ul 0.8-4.8 Absolute Monocytes 0.5 K/ul 0.1-1.0 Absolute Eosinophils 0.3 K/ul 0.1-0.5 Absolute Basophils 0.1 K/ul 0.0-0.3 CMP 02/04/2008 [facility] (Do not Use) Sodium 142 mmol/L 135-144 [facility] [place] [address] [phone] Potassium 4.6 mmol/L 3.6-5.2 Chloride 108 mmol/L 97-110 Carbon Dioxide 27 mmol/L 23-33 Glucose 94 mg/dL 70-105 BUN 22 mg/dL 6-22 Creatinine 1.1 mg/dL 0.5-1.3 BUN/CR 20 Ratio 12.0-20.0 Calcium 9.5 mg/dL 8.6-10.2 54 Total Protein 5.9 g/dL 5.8-7.8 Albumin 3.7 g/dL 3.5-4.8 Globulin 2.2 g/dL 2.0-3.5 A/G Ratio 1.7 Ratio 1.0-2.2 Total Bilirubin 1.5 mg/dL High 0.3-1.2 Alkaline Phosphatase 58 U/L 24-140 Alt 27 U/L 4-45 Ast 29 U/L 12-40 Anion Gap 12 mmol/L 8-16 GFR Calculation > 60 mL/min 55 GFR For > 60 mL/min 56 CMP 06/03/2007 [facility] (Do not Use) Sodium 141 mmol/L 135-144 57 [facility] [place] [address] [phone] Potassium 5.3 mmol/L High 3.6-5.2 Chloride 105 mmol/L 97-110 Carbon Dioxide 29 mmol/L 23-33 Glucose 94 mg/dL 70-105 BUN 19 mg/dL 6-22 Creatinine 1.1 mg/dL 0.5-1.3 BUN/CR 17 Ratio 12.0-20.0 Calcium 9.0 mg/dL 8.6-10.2 Total Protein 5.8 g/dL 5.8-7.8 Albumin 3.8 g/dL 3.5-4.8 Globulin 2.0 g/dL 2.0-3.5 A/G Ratio 1.9 Ratio 1.0-2.2 Total Bilirubin 1.2 mg/dL 0.3-1.2 Alkaline Phosphatase 69 U/L 24-140 Alt 20 U/L 4-45 Ast 24 U/L 12-40 Anion Gap 12 mmol/L 8-16 GFR Calculation > 60 mL/min 58 GFR For > 60 mL/min 59 Laboratory test 06/03/2007 [facility] (Do not Use) Hemoglobin A1c 5.7 % 4.1-6.5 finding [facility] [place] [address] [phone] Lipid Panel 06/03/2007 [facility] (Do not Use) Cholesterol 229 High 50- 199 [facility] mg/[place] [address] [phone] Triglycerides 77 mg/dL 10-150 HDL 49 mg/dL 29-71 Chol/HDL Ratio 4.7 Ratio VLDL 15 mg/dL LDL (Calc) 165 mg/dL High 20-129 Laboratory test 11/10/2006 [facility] (Do not Use) Urine Culture NO GROWTH 60 finding [facility] [place] [address] [phone] CMP 02/27/2006 [facility] (Do not Use) Sodium 136 mmol/L 135-14 61 [facility] [address] [place] [phone] Potassium 4.5 mmol/L 3.6-5.2 Chloride 103 mmol/L 97-110 Carbon Dioxide 25 mmol/L 23-33 Glucose 94 mg/dL 70-105 BUN 16 mg/dL 6-22 Creatinine 0.9 mg/dL 0.5-1.3 BUN/CR 18 Ratio 12.0-20.0 Calcium 9.0 mg/dL 8.6-10.2 Total Protein 6.1 g/dL 5.8-7.8 Albumin 3.7 g/dL 3.5-4.8 Globulin 2.4 g/dL 2.0-3.5 A/G Ratio 1.5 Ratio 1.0-2.2 Total Bilirubin 1.1 mg/dL 0.3-1.2 Alkaline Phosphatase 65 U/L 24-140 Alt 23 U/L 4-45 Ast 30 U/L 12-40 Anion Gap 13 mmol/L 8-16 GFR White Male 89 GFR White Female 66 GFR Black Male 107 GFR Black Female 80 GFR Guidelines 0 62 CBC With Auto Diff 02/27/2006 [facility] (Do not Use) WBC 5.4 K/ul 4.0- 10.9 [facility] [place] [address] [phone] RBC 4.10 M/ul Low 4.70-6.10 Hemoglobin 12.9 GM/dl Low 13.5-18.0 Hematocrit 37.6 % Low 42.0-52.0 MCV 91.7 FL 80.0-97.0 MCH 31.6 pg High 27.0-31.0 MCHC 34.4 g/dL 32.0-36.0 RDW 12.4 % 11.5-14.5 Platelet Count 192 K/ul 140-440 Neutrophils 73.8 % High 50-70 Lymphocytes 16.5 % Low 20-44 Monocytes 5.5 % 2-9 Eosinophil 3.7 % 0-4 Basophil 0.5 % 0-2 Absolute Neutrophils 4.0 K/ul 2.05-7.63 Absolute Lymphocytes 0.9 K/ul 0.8-4.8 Absolute Monocytes 0.3 K/ul 0.1-1.0 Absolute Eosinophils 0.2 K/ul 0.1-0.5 Absolute Basophils 0.0 K/ul Low 0.1-0.3 Lipid Panel 02/27/2006 [facility] (Do not Use) Cholesterol 186 mg/dL 50 -199 [facility] [place] [address] [phone] Triglycerides 75 mg/dL 10-150 HDL 48 mg/dL 29-71 Chol/HDL Ratio 3.9 Ratio VLDL 15 mg/dL LDL (Calc) 123 mg/dL 20-129 CBC 02/24/2005 [facility] (Do not Use) WBC 4.5 K/ul 4.1-10.9 [facility] [place] [address] [phone] RBC 4.50 M/ul 4.20-6.30 Hemoglobin 13.9 GM/dl 12.0-16.0 Hematocrit 42.0 % 41.0-53.0 MCV 93.4 FL 80.0-97.0 MCH 30.8 pg 26.0-32.0 MCHC 33.0 g/dL 31.0-36.0 RDW 12.8 % 11.5-14.5 Platelet Count 255 K/ul 140-440 Neutrophils 59.7 % 50-70 Lymphocytes 23.1 % 20-44 Monocytes 9.3 % High 2-9 Eosinophil 7.2 % High 0-4 Basophil 0.7 % 0-2 Absolute Neutrophils 2.8 K/ul 2.05-7.63 Absolute Lymphocytes 1.0 K/ul 0.8-4.8 Absolute Monocytes 0.4 K/ul 0.1-1.0 Absolute Eosinophils 0.3 K/ul 0.1-0.5 Absolute Basophils 0.0 K/ul Low 0.1-0.3 CMP 02/24/2005 [facility] (Do not Use) Sodium 137 mmol/L 136-144 [facility] [place] [address] [phone] Potassium 4.1 mmol/L 3.6-5.1 Chloride 101 mmol/L 101-111 Carbon Dioxide 27 mmol/L 22-32 Glucose 99 mg/dL 70-105 BUN 17 mg/dL 8-20 Creatinine 0.9 mg/dL 0.7-1.2 BUN/CR 19 Ratio 12.0-20.0 Calcium 9.0 mg/dL 8.9-10.3 Total Protein 6.9 g/dL 6.1-7.9 Albumin 4.0 g/dL 3.5-4.8 Globulin 2.9 g/dL 2.7-4.3 A/G Ratio 1.4 Ratio 1.0-2.2 Total Bilirubin 1.3 mg/dL High 0.3-1.2 Ast 28 U/L 15-41 Alt 30 U/L 17-63 Alkaline Phosphatase 76 U/L 32-91 Anion Gap 13 mmol/L 10-20 Lipid Panel 02/24/2005 [facility] (Do not Use) Cholesterol 209 mg/dL High 50-199 [facility] [place] [address] [phone] Triglycerides 133 mg/dL 10-150 HDL 48 mg/dL 29-71 Chol/HDL Ratio 4.4 Ratio VLDL 27 mg/dL LDL (Calc) 134 mg/dL High 20-100 Laboratory test 01/30/2005 [facility] (Do not Use) PSA 0.10 ng/ml 0.00- 4.00 63 finding [facility] [place] [address] [phone] CBC 10/30/2004 [facility] (Do not Use) WBC 3.6 K/ul Low 4.1-10.9 [facility] [place] [address] [phone] RBC 4.08 M/ul Low 4.20-6.30 Hemoglobin 13.1 GM/dl 12.0-16.0 Hematocrit 37.1 % 37.0-51.0 MCV 90.9 FL 80.0-97.0 MCH 32.2 pg High 26.0-32.0 MCHC 35.4 g/dL 31.0-36.0 RDW 12.7 % 11.5-14.5 Platelet Count 167 K/ul 140-440 Neutrophils 55.5 % 50-70 Lymphocytes 26.3 % 20-44 Monocytes 11.9 % High 2-9 Eosinophil 5.4 % High 0-4 Basophil 0.9 % 0-2 Absolute Neutrophils 2.1 K/ul 2.05-7.63 Absolute Lymphocytes 0.9 K/ul 0.8-4.8 Absolute Monocytes 0.4 K/ul 0.1-1.0 Absolute Eosinophils 0.2 K/ul 0.1-0.5 Absolute Basophils 0.0 K/ul Low 0.1-0.3 Laboratory test 10/30/2004 [facility] (Do not Use) PSA 0.05 ng/ml 0.00- 4.00 64 finding [facility] [place] [address] [phone] TSH 3.53 uIU/ml 0.50-6.00 Free T4 0.81 ng/dL 0.75-1.80 CMP 10/30/2004 [facility] (Do not Use) Sodium 140 mmol/L 135-145 [facility] [place] [address] [phone] Potassium 4.0 mmol/L 3.4-5.3 Chloride 107 mmol/L 98-111 Carbon Dioxide 28 mmol/L 22-33 Glucose 99 mg/dL 70-105 BUN 26 mg/dL 6-26 Creatinine 0.9 mg/dL 0.5-1.5 BUN/CR 29 Ratio High 12.0-20.0 Calcium 8.7 mg/dL 8.6-10.3 Total Protein 6.3 g/dL 6.2-8.3 Albumin 4.0 g/dL 3.5-5.0 Globulin 2.3 g/dL Low 2.7-4.3 A/G Ratio 1.7 Ratio 1.0-2.2 Total Bilirubin 0.8 mg/dL 0.1-1.3 Ast 23 U/L 8-42 Alt 25 U/L 3-42 Alkaline Phosphatase 68 U/L 24-140 Anion Gap 9 mmol/L Low 10-20 Lipid Panel 10/30/2004 [facility] (Do not Use) Cholesterol 174 mg/dL 50 -199 [facility] [address] [phone] Triglycerides 94 mg/dL 30-200 HDL 55 mg/dL 29-71 Chol/HDL Ratio 3.2 Ratio VLDL 19 mg/dL LDL (Calc) 100 mg/dL 20-129 Laboratory test 05/29/2004 [facility] (Do not Use) PSA 0.06 ng/ml 0.00- 4.00 65 finding [facility] [place] [address] [phone] CBC 01/10/2004 [facility] (Do not Use) WBC 8.3 K/ul 4.1-10.9 [facility] [place] [address] [phone] RBC 4.60 M/ul 4.20-6.30 Hemoglobin 14.0 GM/dl 12.0-16.0 Hematocrit 41.7 % 37.0-51.0 MCV 90.7 FL 80.0-97.0 MCH 30.5 pg 26.0-32.0 MCHC 33.6 g/dL 31.0-36.0 RDW 12.0 % 11.5-14.5 Platelet Count 209 K/ul 140-440 Neutrophils 69.4 % 50-70 Lymphocytes 20.8 % 20-44 Monocytes 6.2 % 2-9 Eosinophil 3.0 % 0-4 Basophil 0.6 % 0-2 Absolute Neutrophils 5.9 K/ul 2.05-7.63 Absolute Lymphocytes 1.7 K/ul 0.8-4.8 Absolute Monocytes 0.5 K/ul 0.1-1.0 Absolute Eosinophils 0.2 K/ul 0.1-0.5 Absolute Basophils 0.0 K/ul Low 0.1-0.3 CMP 01/10/2004 [facility] (Do not Use) Sodium 141 mmol/L 135-145 [facility] [place] [address] [phone] Potassium 3.9 mmol/L 3.4-5.3 Chloride 107 mmol/L 98-111 Carbon Dioxide 26 mmol/L 22-33 Glucose 143 mg/dL High 70-105 BUN 24 mg/dL 6-26 Creatinine 1.2 mg/dL 0.5-1.5 BUN/CR 20 Ratio 12.0-20.0 Calcium 9.0 mg/dL 8.6-10.3 Total Protein 7.1 g/dL 6.2-8.3 Albumin 4.1 g/dL 3.5-5.0 Globulin 3.0 g/dL 2.7-4.3 A/G Ratio 1.4 Ratio 1.0-2.2 Total Bilirubin 1.2 mg/dL 0.1-1.3 Ast 26 U/L 8-42 Alt 24 U/L 3-42 Alkaline Phosphatase 65 U/L 24-140 Anion Gap 12 mmol/L 10-20 Laboratory test 11/13/2003 [facility] (Do not Use) PSA 4.47 ng/ml High 0.00-4.00 66 finding [facility] [place] [address] [phone] CBC 10/06/2003 [facility] (Do not Use) WBC 6.1 K/ul 4.1-10.9 [facility] [place] [address] [phone] RBC 4.91 M/ul 4.20-6.30 Hemoglobin 14.8 GM/dl 12.0-16.0 Hematocrit 44.6 % 37.0-51.0 MCV 90.8 FL 80.0-97.0 MCH 30.2 pg 26.0-32.0 MCHC 33.2 g/dL 31.0-36.0 RDW 12.5 % 11.5-14.5 Platelet Count 205 K/ul 140-440 Neutrophils 56.2 % 50-70 Lymphocytes 30.4 % 20-44 Monocytes 9.6 % High 2-9 Eosinophil 3.1 % 0-4 Basophil 0.7 % 0-2 Absolute Neutrophils 3.4 K/ul 2.05-7.63 Absolute Lymphocytes 1.9 K/ul 0.8-4.8 Absolute Monocytes 0.6 K/ul 0.1-1.0 Absolute Eosinophils 0.2 K/ul 0.1-0.5 Absolute Basophils 0.0 K/ul Low 0.1-0.3 Laboratory test 10/06/2003 [facility] (Do not Use) PSA 5.45 ng/ml High 0.00-4.00 67 finding [facility] [place] [address] [phone] TSH 2.39 uIU/ml 0.50-6.00 CMP 10/06/2003 [facility] (Do not Use) Sodium 141 mmol/L 135-145 [place] [address] [phone] Potassium 4.6 mmol/L 3.4-5.3 Chloride 106 mmol/L 98-111 Carbon Dioxide 28 mmol/L 22-33 Glucose 89 mg/dL 70-105 BUN 23 mg/dL 6-26 Creatinine 1.1 mg/dL 0.5-1.5 BUN/CR 21 Ratio High 12.0-20.0 Calcium 9.4 mg/dL 8.6-10.3 Total Protein 6.8 g/dL 6.2-8.3 Albumin 4.1 g/dL 3.5-5.0 Globulin 2.7 g/dL 2.7-4.3 A/G Ratio 1.5 Ratio 1.0-2.2 Total Bilirubin 1.0 mg/dL 0.1-1.3 Ast 21 U/L 8-42 Alt 21 U/L 3-42 Alkaline Phosphatase 63 U/L 24-140 Anion Gap 12 mmol/L 10-20 Lipid Panel 10/06/2003 [facility] (Do not Use) Cholesterol 188 mg/dL 50 -199 [facility] [place] [address] [phone] Triglycerides 115 mg/dL 30-200 HDL 38 mg/dL 29-71 Chol/HDL Ratio 5.0 Ratio VLDL 23 mg/dL LDL (Calc) 127 mg/dL 20-129 Laboratory test 07/06/2002 [facility] (Do not Use) PSA 3.02 ng/ml 0.00- 4.00 68 finding [facility] [place] [address] [phone] CMP 07/06/2002 [facility] (Do not Use) Sodium 140 mmol/L 135-145 [facility] [place] [address] [phone] Potassium 5.2 mmol/L 3.4-5.3 Chloride 108 mmol/L 98-111 Carbon Dioxide 28 mmol/L 22-33 Glucose 96 mg/dL 70-105 BUN 18 mg/dL 6-26 Creatinine 1.1 mg/dL 0.5-1.5 BUN/CR 16 Ratio 12.0-20.0 Calcium 9.1 mg/dL 8.6-10.3 Total Protein 6.9 g/dL 6.2-8.3 Albumin 4.3 g/dL 3.5-5.0 Globulin 2.6 g/dL Low 2.7-4.3 A/G Ratio 1.7 Ratio 1.0-2.2 Total Bilirubin 0.9 mg/dL 0.1-1.3 Ast 25 U/L 8-42 Alt 24 U/L 3-42 Alkaline Phosphatase 75 U/L 24-140 Lipid Panel 07/06/2002 [facility] (Do not Use) Cholesterol 213 mg/dL High 50-199 [place], [place] [id number] [phone] Triglycerides 341 mg/dL High 30-200 HDL 39 mg/dL 29-71 Chol/HDL Ratio 5.5 Ratio VLDL 68 mg/dL LDL (Calc) Triglyceride angelina <SEE NOTE> mg/dL 20-129 69 Laboratory test 07/06/2002 [facility] (Do not Use) Direct LDL 131 mg/dL High 20-129 [place] [address] [phone] [address] [address] Surgical Pathology Report Specimen(s) Received A: Right cheek lesion Clinical Diagnosis and History D48.5 Main lesion with smaller satellite nasally. 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 DEEP AND LATERAL MARGINS, NEGATIVE FOR CARCINOMA; Gross Description Specimen received in formalin labeled "right cheek lesion" is an oriented skin ellipse with a suture at one of the poles. The suture is arbitrarily designated as 12:00. The specimen measures 1.6 cm from 12 to 6:00, 0.6 cm from 9 to 3:00, excised to a depth of up to 0.3 cm. The surface displays a central, slightly friable peace to yellow lesion measuring 0.5 x 0.4 x 0.2 cm. The remaining surface is peace-yellow and slightly granular. The 3:00 margin is inked blue and the 9:00 margin is inked black. The specimen is sectioned and submitted for microscopic examination as follows: 1 cruciate 12:00 margin; 2 transverse; and 3 cruciate 6:00 margin. (3 blocks) cristopher mchugh/alex Technical component processed at [facility], Histopathology, [address] [place] [address], [id number]. Diagnosis and reporting performed at [facility], [address] [place] [address]. Reported: 11/12/2018 17:02 Electronically Signed Out By Rosie Riley M.D. jmd This report may include immunohistochemical or in-situ hybridization results. Testing was developed and the performance characteristics determined by [facility] [employer] [facility] as required by CLIA '88. The FDA has determined that approval for specific use is not necessary for clinical use. The quality of all stains including positive and negative controls for all immunohistochemical and/or special stains were reviewed and considered appropriate ICD9 Codes D04.9 L57.0 D4 CPT4 codes A: 96636U Unless otherwise specified, testing performed by [facility], [address] [address] 2 Normal Kidney Function or Mild Disease - GFR >OR=60 Chronic Kidney Disease - GFR 15-59 Renal Failure - GFR < 15 GFR not calculated on patients under 18 years of age. 3 Cholesterol/HDL Ratio Interpretation Risk : 1/2 Avg Avg 2x Avg 3x Avg Male : 3.43 4.97 9.50 23.99 Female : 3.27 4.44 7.05 11.04 4 Per NCEP ATP III Guidelines: Results lower than 40 mg/dL are suggestive of increased risk for coronary artery disease. Results > or=to 60 mg/dL are considered a negative risk factor. 5 Per NCEP ATP III Guidelines: Normal Population <130 Patients with medical conditions: CHD/DM Optimal: <100 Borderline high: 130-159 High: 160-189 Very high: >189 6 Updated reference range on new analyzer 7 Updated reference range on new analyzer 8 Concerning GFR Guidelines for Americans: Normal function or mild renal disease, if clinically at risk: >/=60 mL/min Moderately decreased: 30-59 Severely decreased: 15-29 Renal failure: <15 9 Concerning GFR Guidelines: Normal function or mild renal disease, if clinically at risk: >/=60 mL/min Moderately decreased: 30-59 Severely decreased: 15-29 Renal failure: <15 Glomerular Filtration Rate (GFR) is estimated based on the MDRD equation, which assumes a steady state for creatinine as recommended by the National Kidney Disease Education Program in conjunction with the National Institutes of Health and the National Kidney Foundation. Clinical conditions in which it may be necessary to measure GFR by using clearance methods include extremes of age and body size, severe malnutrition or obesity, diseases of skeletal muscle, paraplegia or quadriplegia, vegetarian diet, rapidly changing kidney function, and calculation of the dose of potentially toxic drugs that are excreted by the kidneys. 10 Updated Reference Range 11 Updated reference range on new analyzer 12 Updated reference range on new analyzer 13 Concerning GFR Guidelines for Americans: Normal function or mild renal disease, if clinically at risk: >/=60 mL/min Moderately decreased: 30-59 Severely decreased: 15-29 Renal failure: <15 14 Concerning GFR Guidelines: Normal function or mild renal disease, if clinically at risk: >/=60 mL/min Moderately decreased: 30-59 Severely decreased: 15-29 Renal failure: <15 Glomerular Filtration Rate (GFR) is estimated based on the MDRD equation, which assumes a steady state for creatinine as recommended by the National Kidney Disease Education Program in conjunction with the National Institutes of Health and the National Kidney Foundation. Clinical conditions in which it may be necessary to measure GFR by using clearance methods include extremes of age and body size, severe malnutrition or obesity, diseases of skeletal muscle, paraplegia or quadriplegia, vegetarian diet, rapidly changing kidney function, and calculation of the dose of potentially toxic drugs that are excreted by the kidneys. 15 Updated reference range on new analyzer 16 This sample is drawn by: 17 Updated reference range on new analyzer 18 Updated reference range on new analyzer 19 Concerning GFR Guidelines for Americans: Normal function or mild renal disease, if clinically at risk: >/=60 mL/min Moderately decreased: 30-59 Severely decreased: 15-29 Renal failure: <15 20 Concerning GFR Guidelines: Normal function or mild renal disease, if clinically at risk: >/=60 mL/min Moderately decreased: 30-59 Severely decreased: 15-29 Renal failure: <15 Glomerular Filtration Rate (GFR) is estimated based on the MDRD equation, which assumes a steady state for creatinine as recommended by the National Kidney Disease Education Program in conjunction with the National Institutes of Health and the National Kidney Foundation. Clinical conditions in which it may be necessary to measure GFR by using clearance methods include extremes of age and body size, severe malnutrition or obesity, diseases of skeletal muscle, paraplegia or quadriplegia, vegetarian diet, rapidly changing kidney function, and calculation of the dose of potentially toxic drugs that are excreted by the kidneys. 21 Updated reference range on new analyzer 22 Beginning 07/27/06 PSA values assayed at [facility] uses chemiluminescence methodology manufactured by [email or web address] for use on the DXI analyzer. Values obtained with different assay methods or kits can not be used interchangeably. Serum PSA measurement is not an absolute test for malignancy. The PSA value should be used in conjunction with information available from clinical evaluation and other diagnostic procedures. 23 Per NCEP ATP III Guidelines: Results lower than 40 mg/dL are suggestive of increased risk for coronary artery disease. Results > or=to 60 mg/dL are considered a negative risk factor. 24 Per NCEP ATP III Guidelines: Normal Population <130 Patients with medical conditions: CHD/DM Optimal: <100 Borderline high: 130-159 High: 160-189 Very high: >189 25 Concerning GFR Guidelines for Americans: Normal function or mild renal disease, if clinically at risk: >/=60 mL/min Moderately decreased: 30-59 Severely decreased: 15-29 Renal failure: <15 26 Concerning GFR Guidelines: Normal function or mild renal disease, if clinically at risk: >/=60 mL/min Moderately decreased: 30-59 Severely decreased: 15-29 Renal failure: <15 Glomerular Filtration Rate (GFR) is estimated based on the MDRD equation, which assumes a steady state for creatinine as recommended by the National Kidney Disease Education Program in conjunction with the National Institutes of Health and the National Kidney Foundation. Clinical conditions in which it may be necessary to measure GFR by using clearance methods include extremes of age and body size, severe malnutrition or obesity, diseases of skeletal muscle, paraplegia or quadriplegia, vegetarian diet, rapidly changing kidney function, and calculation of the dose of potentially toxic drugs that are excreted by the kidneys. 27 Recommended Cardiac Risk Assessment: Low < 1.0 mg/L Average 1.0 - 3.0 mg/L High > 3.0 mg/L 28 Beginning 07/27/06 PSA values assayed at [facility] uses chemiluminescence methodology manufactured by [employer] for use on the DXI analyzer. Values obtained with different assay methods or kits can not be used interchangeably. Serum PSA measurement is not an absolute test for malignancy. The PSA value should be used in conjunction with information available from clinical evaluation and other diagnostic procedures. 29 Per NCEP ATP III Guidelines: Results lower than 40 mg/dL are suggestive of increased risk for coronary artery disease. Results > or=to 60 mg/dL are considered a negative risk factor. 30 Per NCEP ATP III Guidelines: Normal Population <130 Patients with medical conditions: CHD/DM Optimal: <100 Borderline high: 130-159 High: 160-189 Very high: >189 31 This sample is drawn by:RH 32 Concerning GFR Guidelines for Americans: Normal function or mild renal disease, if clinically at risk: >/=60 mL/min Moderately decreased: 30-59 Severely decreased: 15-29 Renal failure: <15 33 Concerning GFR Guidelines: Normal function or mild renal disease, if clinically at risk: >/=60 mL/min Moderately decreased: 30-59 Severely decreased: 15-29 Renal failure: <15 Glomerular Filtration Rate (GFR) is estimated based on the MDRD equation, which assumes a steady state for creatinine as recommended by the National Kidney Disease Education Program in conjunction with the National Institutes of Health and the National Kidney Foundation. Clinical conditions in which it may be necessary to measure GFR by using clearance methods include extremes of age and body size, severe malnutrition or obesity, diseases of skeletal muscle, paraplegia or quadriplegia, vegetarian diet, rapidly changing kidney function, and calculation of the dose of potentially toxic drugs that are excreted by the kidneys. 34 Per NCEP ATP III Guidelines: Results lower than 40 mg/dL are suggestive of increased risk for coronary artery disease. Results > or=to 60 mg/dL are considered a negative risk factor. 35 Per NCEP ATP III Guidelines: Normal Population <130 Patients with medical conditions: CHD/DM Optimal: <100 Borderline high: 130-159 High: 160-189 Very high: >189 36 Beginning 07/27/06 PSA values assayed at [facility] uses an EIA methodology manufactured by [employer] for use on the DXI analyzer. Values obtained with different assay methods or kits can not be used interchangeably. Serum PSA measurement is not an absolute test for malignancy. The PSA value should be used in conjunction with information available from clinical evaluation and other diagnostic procedures. 37 This sample is drawn by:CT 38 Concerning GFR Guidelines for Americans: Normal function or mild renal disease, if clinically at risk: >/=60 mL/min Moderately decreased: 30-59 Severely decreased: 15-29 Renal failure: <15 39 Concerning GFR Guidelines: Normal function or mild renal disease, if clinically at risk: >/=60 mL/min Moderately decreased: 30-59 Severely decreased: 15-29 Renal failure: <15 Glomerular Filtration Rate (GFR) is estimated based on the MDRD equation, which assumes a steady state for creatinine as recommended by the National Kidney Disease Education Program in conjunction with the National Institutes of Health and the National Kidney Foundation. Clinical conditions in which it may be necessary to measure GFR by using clearance methods include extremes of age and body size, severe malnutrition or obesity, diseases of skeletal muscle, paraplegia or quadriplegia, vegetarian diet, rapidly changing kidney function, and calculation of the dose of potentially toxic drugs that are excreted by the kidneys. 40 Per NCEP ATP III Guidelines: Results lower than 40 mg/dL are suggestive of increased risk for coronary artery disease. Results > or=to 60 mg/dL are considered a negative risk factor. 41 Per NCEP ATP III Guidelines: Optimal: <100 Near optimal: 100-129 Borderline high: 130-159 High: 160-189 Very high: >189 42 This sample is drawn by:LA 43 SPECIMEN DESCRIPTION KNEE RIGHT SPECIAL REQUESTS NONE GRAM STAIN MODERATE (10 TO 25/LPF) WHITE BLOOD CELLS FEW (1 TO 5/OIF) GRAM POSITIVE COCCI CULTURE RESULTS MANY STAPHYLOCOCCUS AUREUS REPORT STATUS FINAL 03/02/2010 ORGANISM STAPHYLOCOCCUS AUREUS METHOD ALESHIA CLINDAMYCIN <=0.25 SUSCEPTIBLE THIS ISOLATE WAS TESTED FOR INDUCIBLE CLINDAMYCIN RESISTANCE. ERYTHROMYCIN >=8 RESISTANT LEVOFLOXACIN 4 INTERMEDIATE OXACILLIN 0.5 SUSCEPTIBLE OXACILLIN RESULT PREDICTS SUSCEPTIBILITY TO ALL PENICILLINASE-STABLE PENICILLINS (NAFCILLIN, DICLOXACILIN), CEPHALOSPORINS, CARBAPENEMS, AMOXICILLIN/CLAVULANATE AND AMPICILLIN/SULBACTAM PER CLSI STANDARDS. TETRACYCLINE <=1 SUSCEPTIBLE VANCOMYCIN 1 SUSCEPTIBLE TRIMETH/SULFA <=.5/9.5 SUSCEPTIBLE Unless otherwise specified, testing performed by [email or web address] [address] [place] [id number] This sample is drawn by:STEPHANIE 45 Concerning GFR GUIDELINES: Normal Function or Mild Renal Disease, if clinically at risk: >/=60mL/min Moderately decreased: 30-59 Severely decreased: 15-29 Renal Failure: <15 Glomerular Filtration Rate (GFR) is estimated based on the MDRD equation, which assumes a steady state for creatinine as recommended by the National Kidney Disease Education Program in conjunction with the National Institutes of Health and the National Kidney Foundation. Clinical conditions in which it may be necessary to measure GFR by using clearance methods include extremes of age and body size, severe malnutrition or obesity, diseases of skeletal muscle, paraplegia or quadriplegia, vegetarian diet, rapidly changing kidney function, and calculation of the dose of potentially toxic drugs that are excreted by the kidneys. 46 Concerning GFR GUIDELINES: Normal Function or Mild Renal Disease, if clinically at risk: >/=60mL/min Moderately decreased: 30-59 Severely decreased: 15-29 Renal Failure: <15 47 PER NCEP ATP III GUIDELINES: RESULTS LOWER THAN 40 MG/DL ARE SUGGESTIVE OF INCREASED RISK FOR CORONARY ARTERY DISEASE. RESULTS > OR=TO 60 MG/DL ARE CONSIDERED A NEGATIVE RISK FACTOR. 48 INTERPRETATION OF CHOL-HDL RATIO CHD RISK FEMALE MALE VERY HIGH >8.3 >14.3 HIGH 5.6 - 8.3 6.7 - 14.3 AVERAGE 3.7 - 5.6 4.0 - 6.7 BELOW AVERAGE 2.5 - 3.7 2.7 - 4.0 PROTECTED <2.5 <2.7 49 PER NCEP ATP III GUIDELINES: OPTIMAL: <100 NEAR OPTIMAL: 100 - 129 BORDERLINE HIGH: 130 - 159 HIGH: 160 - 189 VERY HIGH: >189 50 FASTING This sample is drawn by:CT 51 PER NCEP ATP III GUIDELINES: RESULTS LOWER THAN 40 MG/DL ARE SUGGESTIVE OF INCREASED RISK FOR CORONARY ARTERY DISEASE. RESULTS > OR=TO 60 MG/DL ARE CONSIDERED A NEGATIVE RISK FACTOR. 52 INTERPRETATION OF CHOL-HDL RATIO CHD RISK FEMALE MALE VERY HIGH >8.3 >14.3 HIGH 5.6 - 8.3 6.7 - 14.3 AVERAGE 3.7 - 5.6 4.0 - 6.7 BELOW AVERAGE 2.5 - 3.7 2.7 - 4.0 PROTECTED <2.5 <2.7 53 PER NCEP ATP III GUIDELINES: OPTIMAL <100 NEAR OPTIMAL 100 - 129 BORDERLINE HIGH 130 - 159 HIGH 160 - 189 VERY HIGH >189 54 The difference between the most recent result of 9.0 and the current result of 9.5 exceeds the absolute delta value of 0.3 as defined for this test. 55 Concerning GFR GUIDELINES: Normal Function or Mild Renal Disease, if clinically at risk: >/=60mL/min Moderately decreased: 30-59 Severely decreased: 15-29 Renal Failure: <15 Glomerular Filtration Rate (GFR) is estimated based on the MDRD equation, which assumes a steady state for creatinine as recommended by the National Kidney Disease Education Program in conjunction with the National Institutes of Health and the National Kidney Foundation. Clinical conditions in which it may be necessary to measure GFR by using clearance methods include extremes of age and body size, severe malnutrition or obesity, diseases of skeletal muscle, paraplegia or quadriplegia, vegetarian diet, rapidly changing kidney function, and calculation of the dose of potentially toxic drugs that are excreted by the kidneys. 56 Concerning GFR GUIDELINES: Normal Function or Mild Renal Disease, if clinically at risk: >/=60mL/min Moderately decreased: 30-59 Severely decreased: 15-29 Renal Failure: <15 57 FASTING 58 Concerning GFR GUIDELINES: Normal Function or Mild Renal Disease, if clinically at risk: >/=60mL/min Moderately decreased: 30-59 Severely decreased: 15-29 Renal Failure: <15 Glomerular Filtration Rate (GFR) is estimated based on the MDRD equation, which assumes a steady state for creatinine as recommended by the National Kidney Disease Education Program in conjunction with the National Institutes of Health and the National Kidney Foundation. Clinical conditions in which it may be necessary to measure GFR by using clearance methods include extremes of age and body size, severe malnutrition or obesity, diseases of skeletal muscle, paraplegia or quadriplegia, vegetarian diet, rapidly changing kidney function, and calculation of the dose of potentially toxic drugs that are excreted by the kidneys. 59 Concerning GFR GUIDELINES: Normal Function or Mild Renal Disease, if clinically at risk: >/=60mL/min Moderately decreased: 30-59 Severely decreased: 15-29 Renal Failure: <[address] SHELBIE TO DR SORTO TEL # [phone] AUTO FX IN 11/10 [place] 61 FASTING 62 Normal Function or Mild Renal Disease, if clinically at risk: >/=60 mL/min Moderately decreased: 30-59 Severely decreased: 15-29 Renal Failure: <15 Glomerular Filtration Rate (GFR) is estimated based on the MDRD equation, which assumes a steady state for creatinine as recommended by the National Kidney Disease Education Program in conjunction with the National Institutes of Health and the National Kidney Foundation. Clinical conditions in which it may be necessary to measure GFR by using clearance methods include extremes of age and body size, severe malnutrition or obesity, diseases of skeletal muscle, paraplegia or quadriplegia, vegetarian diet, rapidly changing kidney function, and calculation of the dose of potentially toxic drugs that are excreted by the kidneys. 63 PSA VALUES ASSAYED AT [facility] USES AN EIA METHODOLOGY MANUFACTURED BY [employer] FOR USE ON THE NEXIA ANALYZER. VALUES OBTAINED WITH DIFFERENT ASSAY METHODS OR KITS CAN NOT BE USED INT ERCHANGEABLY. SERUM PSA MEASUREMENT IS NOT AN ABSOLUTE TEST FOR MALIGNANCY, THE PSA VALUE SHOULD BE USED IN CONJUNCTION WITH INFORMATION AVAILABLE FROM CLINICAL EVALUATION AND OTHER DIAGNOSTIC PROCEDURES. 64 PSA VALUES ASSAYED AT [facility] USES AN EIA METHODOLOGY MANUFACTURED BY [employer] FOR USE ON THE NEXIA ANALYZER. VALUES OBTAINED WITH DIFFERENT ASSAY METHODS OR KITS CAN NOT BE USED INT ERCHANGEABLY. SERUM PSA MEASUREMENT IS NOT AN ABSOLUTE TEST FOR MALIGNANCY, THE PSA VALUE SHOULD BE USED IN CONJUNCTION WITH INFORMATION AVAILABLE FROM CLINICAL EVALUATION AND OTHER DIAGNOSTIC PROCEDURES. 65 PSA VALUES ASSAYED AT [facility] USES AN EIA METHODOLOGY MANUFACTURED BY [employer] FOR USE ON THE NEXIA ANALYZER. VALUES OBTAINED WITH DIFFERENT ASSAY METHODS OR KITS CAN NOT BE USED INT ERCHANGEABLY. SERUM PSA MEASUREMENT IS NOT AN ABSOLUTE TEST FOR MALIGNANCY, THE PSA VALUE SHOULD BE USED IN CONJUNCTION WITH INFORMATION AVAILABLE FROM CLINICAL EVALUATION AND OTHER DIAGNOSTIC PROCEDURES. 66 PSA VALUES ASSAYED AT [facility] USES AN EIA METHODOLOGY MANUFACTURED BY [employer] FOR USE ON THE NEXIA ANALYZER. VALUES OBTAINED WITH DIFFERENT ASSAY METHODS OR KITS CAN NOT BE USED INT ERCHANGEABLY. SERUM PSA MEASUREMENT IS NOT AN ABSOLUTE TEST FOR MALIGNANCY, THE PSA VALUE SHOULD BE USED IN CONJUNCTION WITH INFORMATION AVAILABLE FROM CLINICAL EVALUATION AND OTHER DIAGNOSTIC PROCEDURES. 67 PSA VALUES ASSAYED AT [facility] USES AN EIA METHODOLOGY MANUFACTURED BY [employer] FOR USE ON THE NEXIA ANALYZER. VALUES OBTAINED WITH DIFFERENT ASSAY METHODS OR KITS CAN NOT BE USED INT ERCHANGEABLY. SERUM PSA MEASUREMENT IS NOT AN ABSOLUTE TEST FOR MALIGNANCY, THE PSA VALUE SHOULD BE USED IN CONJUNCTION WITH INFORMATION AVAILABLE FROM CLINICAL EVALUATION AND OTHER DIAGNOSTIC PROCEDURES. 68 PSA VALUES ASSAYED AT [facility] USES AN EIA METHODOLOGY MANUFACTERED BY [employer] FOR USE ON THE NEXIA ANALYZER. VALUES OBTAINED WITH DIFFERENT ASSAY METHODS OR KITS CAN NOT BE USED INT ERCHANGEABLY. SERUM PSA MEASUREMENT IS NOT AN ABSOLUTE TEST FOR MALIGNANCY, THE PSA VALUE SHOULD BE USED IN CONJUNCTION WITH INFORMATION AVAILABLE FROM CLINICAL EVALUATION AND OTHER DIAGNOSTIC PROCEDURES. 69 Triglyceride value >250 mg/dl, see Direct LDL result Procedures Date Code Description Status 11/10/2018 34241 Layer Closure Wound < 2.6CM Completed Face/Ear/Eyelid/Nose/Lip/Muc Mem 11/10/2018 72632 Excise Benign Lesion .6-1CM Completed Face/Ear/Eyelid/Nose/Lip/Mucous Memb 10/13/2018 44519 Arthrocentesis/Aspiration/Inj Major Joint Or Bursa With Completed Ultrasnd 10/09/2015 21757 Electrocardiogram Complete Completed 02/21/2014 71482 Electrocardiogram Complete Completed 06/28/2012 90278 Destruc Any Method 2-14 Lesions,Each Pre Malig Completed 06/28/2012 53626 Destruction Lesion/Any Method Premalignant Lesions Completed 03/16/2012 46117 Electrocardiogram Complete Completed 12/10/2011 93821 Remove Impacted Cerumen Requiring Instrumentation Completed 02/04/2011 63795 Admin Of Inj (Therapeutic Phrophylactic Or Diagnostic Completed Subq Inj 06/01/2009 [id number] Colonoscopy Completed 10/19/2006 09615 Electrocardiogram Complete Completed 02/27/2006 90826 Electrocardiogram Complete Completed 01/10/2004 94300 Electrocardiogram Complete Completed 11/08/2003 95200 Destruction Lesion/Any Method Premalignant Lesions Completed 10/06/2003 19506 Electrocardiogram Complete Completed 07/06/2002 94311 Electrocardiogram Complete Completed 11/25/2000 62726 Biopsy Skin Lesion Single Completed 10/23/2000 62407 Electrocardiogram Complete Completed Encounters Type Date Location Provider Dx Diagnosis Office Visit 10/26/2018 12:20p Bg Driscoll PA D48.5 Neoplasm of uncertain behavior of skin M70.872 Oth soft tissue disord related to use/pressure, LEFT ank/ft Z68.30 Body mass index (BMI) 30.0-30.9, adult Office Visit 10/13/2018 9:30a David Art Gabriel, M25.551 Pain in DO DO RIGHT hip M70.61 Trochanteric bursitis, RIGHT hip M17.0 Bilateral primary osteoarthritis of knee Office Visit 09/24/2018 11:30a David Art Gabriel, M25.551 Pain in DO DO RIGHT hip M70.61 Trochanteric bursitis, RIGHT hip M17.0 Bilateral primary osteoarthritis of knee Office Visit 09/23/2018 1:20p Heather West M79.651 Pain in RIGHT thigh C, RN [facility] [employer] [facility] Office Visit 08/18/2018 1:00p Heather West I10 Essential ( primary) Lita RN [facility] [employer] hypertension E78.2 Mixed hyperlipidemia J45.40 Moderate persistent asthma, uncomplicated T78.49xA Other allergy, initial encounter Z13.31 Encounter for screening for depression Z68.33 Body mass index (BMI) 33.0-33.9, adult Office Visit 06/17/2018 1:20p Heather West, I10 Essential ( primary) RN [facility] [employer] hypertension E78.2 Mixed hyperlipidemia J45.40 Moderate persistent asthma, uncomplicated M10.00 Idiopathic gout, unspecified site Z68.32 Body mass index (BMI) 32.0-32.9, adult Office Visit 11/06/2017 10:00a Heather West, I10 Essential ( primary) RN [facility] [employer] hypertension E78.2 Mixed hyperlipidemia D64.9 Anemia, unspecified Z68.32 Body mass index (BMI) 32.0-32.9, adult Office Visit 05/08/2017 11:00a Heather West, Z00.00 Encntr for general RN [facility] [employer] adult medical exam w/o abnormal findings I10 Essential (primary) hypertension E78.2 Mixed hyperlipidemia L03.115 Cellulitis of RIGHT lower limb D64.9 Anemia, unspecified Office Visit 03/16/2017 11:00a Bg Driscoll PA Z02.1 Encounter for pre-employment examination Z23 Encounter for immunization Office Visit 01/08/2017 2:00p Bg Driscoll PA L03.115 Cellulitis of RIGHT lower limb Office Visit 10/22/2016 1:00p Heather West, Z00.00 Encntr for general RN [facility] adult medical exam w/o abnormal findings C61 Malignant neoplasm of prostate I10 Essential (primary) hypertension E78.2 Mixed hyperlipidemia J45.40 Moderate persistent asthma, uncomplicated D64.9 Anemia, unspecified M17.9 Osteoarthritis of knee, unspecified Z23 Encounter for immunization R23.4 Changes in skin texture Office Visit 06/25/2016 2:00p Heather West, Z00.00 Encntr for general RN MS [facility] adult medical exam w/o abnormal findings I10 Essential (primary) hypertension E78.2 Mixed hyperlipidemia Z23 Encounter for immunization Office Visit 02/20/2016 1:20p Heather West, I10 Essential ( primary) RN [facility] [employer] hypertension E78.2 Mixed hyperlipidemia C61 Malignant neoplasm of prostate J45.40 Moderate persistent asthma, uncomplicated M17.9 Osteoarthritis of knee, unspecified D64.9 Anemia, unspecified Z23 Encounter for immunization Office Visit 10/09/2015 2:40p Bg Driscoll PA Z00.00 Encntr for general adult medical exam w/o abnormal findings E78.2 Mixed hyperlipidemia C61 Malignant neoplasm of prostate M54.5 Low back pain G56.00 Carpal tunnel syndrome, unspecified upper limb J45.40 Moderate persistent asthma, uncomplicated M17.9 Osteoarthritis of knee, unspecified Office Visit 10/12/2014 10:40a Rosario Sellers, V72.84 Examination MD Preoperative Unspec Office Visit 09/11/2014 10:20a Rosario Sellers, 724.2 Lumstu [place] 272.2 Hyperlipidemia Mixed 401.1 Hypertension Benign 185 Malignant Neoplasm Prostate Office Visit 08/07/2014 1:00p Rosario Sellers, 724.2 Lumbago Office Visit 06/07/2014 1:00p Rosario Sellers, V04.81 Need For Prophylactic MD Vaccination & Inoculation/Influenza 354.0 Carpal Tunnel Syndrome 272.2 Hyperlipidemia Mixed 185 Malignant Neoplasm Prostate 715.96 Osteoarthrosis Unspec Genlzd Or Localzd Lower Leg 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 493.00 Asthma Extrinsic Unspecified 401.1 Hypertension Benign Office Visit 02/21/2014 9:40a Rosario Sellers MD V70.0 Exam (Adult ) General Medical Routine AT Health Care Facility 354.0 Carpal Tunnel Syndrome V70.5 Examination Health Of Defined Subpopulations 380.4 Impacted Cerumen 401.1 Hypertension Benign 493.00 Asthma Extrinsic Unspecified 278.00 Obesity Unspec 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 715.96 Osteoarthrosis Unspec Genlzd Or Localzd Lower Leg 185 Malignant Neoplasm Prostate 272.2 Hyperlipidemia Mixed Office Visit 06/28/2012 9:30a Mikhail Ambrocio, 465.9 URI Upper MD Respiratory Infections Acute Unspec Sites 702.0 Actinic Keratosis Office Visit 06/15/2012 2:40p Heather West, RN [facility] [employer] 786.2 Cough V04.81 Need For Prophylactic Vaccination & Inoculation/Influenza Office Visit 01/09/2012 10:00a Lilly Cruz MD 133.0 Scabies Office Visit 12/10/2011 2:15p Mikhail Ambrocio MD 388.70 Otalgia & Earache Unspec 380.4 Impacted Cerumen 493.00 Asthma Extrinsic Unspecified 354.0 Carpal Tunnel Syndrome 727.40 Cyst Synovial Unspec Office Visit 08/15/2011 1:00p Mikhail Ambrocio MD 401.1 Hypertension Benign 272.2 Hyperlipidemia Mixed 493.00 Asthma Extrinsic Unspecified 715.36 Osteoarthrosis Localzd Not Spec Prime Or 2Ndy Lower Leg 790.21 Impaired Fasting Glucose 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 Office Visit 02/04/2011 2:00p Lilly Cruz MD V70.0 Exam ( Adult) General Medical Routine AT Health Care Facility V72.85 Examination Other Spec Office Visit 03/05/2010 12:45p Heather West 682.8 Cellulitis & Abscess RN [facility] Other Spec Sites Office Visit 03/01/2010 4:00p Lilly Cruz Cellulitis & Abscess MD Abiodun Other Spec Sites Office Visit 02/27/2010 9:15a Heather West 682.8 Cellulitis & Abscess RN [facility] Other Spec Sites V06.5 Tetanus Diphtheria (DT) Office Visit 04/18/2009 6:00p Mikhail Ambrocio MD 401.1 Hypertension Benign 272.2 Hyperlipidemia Mixed 493.00 Asthma Extrinsic Unspecified 715.36 Osteoarthrosis Localzd Not Spec Prime Or 2Ndy Lower Leg 596.8 Bladder Disorders Other Spec 790.21 Impaired Fasting Glucose Office Visit 12/11/2008 9:40a Mikhail Ambrocio MD 401.1 Hypertension Benign 272.2 Hyperlipidemia Mixed 493.00 Asthma Extrinsic Unspecified 790.21 Impaired Fasting Glucose 715.36 Osteoarthrosis Localzd Not Spec Prime Or 2Ndy Lower Leg 596.8 Bladder Disorders Other Spec Office Visit 11/09/2008 9:15a Heather West 682.8 Cellulitis & Abscess RN [facility] Other Spec Sites Office Visit 11/07/2008 10:45a Lilly Cruz 682.8 Cellulitis & Abscess MD [facility] Other Spec Sites Office Visit 06/05/2008 9:40a Mikhail Ambrocio 401.1 Hypertension Karel OKEEFE 493.00 Asthma Extrinsic Unspecified 272.2 Hyperlipidemia Mixed 465.9 URI Upper Respiratory Infections Acute Unspec Sites Office Visit 02/04/2008 9:30a Mikhail Ambrocio MD 790.21 Impaired Fasting Glucose 272.2 Hyperlipidemia Mixed 493.00 Asthma Extrinsic Unspecified 401.1 Hypertension Benign 715.36 Osteoarthrosis Localzd Not Spec Prime Or 2Ndy Lower Leg 596.8 Bladder Disorders Other Spec Office Visit 10/01/2007 10:40a Mikhail Ambrocio MD 401.1 Hypertension Benign 272.2 Hyperlipidemia Mixed 790.21 Impaired Fasting Glucose 493.00 Asthma Extrinsic Unspecified Office Visit 06/11/2007 1:30p Mikhail Ambrocio MD 790.21 Impaired Fasting Glucose 401.1 Hypertension Benign 493.00 Asthma Extrinsic Unspecified 278.00 Obesity Unspec Office Visit 2007 2:10p Mikhail Ambrocio MD 401.1 Hypertension Benign 493.00 Asthma Extrinsic Unspecified 278.00 Obesity Unspec 596.8 Bladder Disorders Other Spec 790.21 Impaired Fasting Glucose Office Visit 10/19/2006 2:00p Mikhail Ambrocio, V72.84 Examination MD Preoperative Unspec 727.66 Ruptured Tendon Patellar 401.1 Hypertension Benign 493.00 Asthma Extrinsic Unspecified 185 Malignant Neoplasm Prostate 278.00 Obesity Unspec 596.8 Bladder Disorders Other Spec 790.21 Impaired Fasting Glucose Office Visit 09/30/2006 11:45a Heather West, 719.06 Effusion Joint Lower RN [facility] [employer] Leg Office Visit 09/21/2006 9:30a Mikhail Ambrocio, 401.1 Hypertension Benign 715.10 Osteoarthrosis Localized Prim Site Unspec 786.05 Shortness Of Breath 493.00 Asthma Extrinsic Unspecified 278.00 Obesity Unspec 185 Malignant Neoplasm Prostate Office Visit 07/06/2006 10:10a Mikhail Ambrocio MD 401.1 Hypertension Benign 278.00 Obesity Unspec 493.00 Asthma Extrinsic Unspecified Office Visit 04/27/2006 11:45a Mikhail Ambrocio, 883.0 Open Wound Finger(S) W/O Complication Office Visit 02/27/2006 9:30a Mikhail Ambrocio, 401.1 Hypertension Benign 272.2 Hyperlipidemia Mixed 185 Malignant Neoplasm Prostate V16.49 Family History Malignant Neoplasm Other 715.90 Osteoarthrosis Unspec Genlzd Or Localzd Site Unspec 596.8 Bladder Disorders Other Spec Office Visit 08/25/2005 10:00a Mikhail Ambrocio MD 401.1 Hypertension Benign 272.2 Hyperlipidemia Mixed 715.10 Osteoarthrosis Localized Prim Site Unspec 185 Malignant Neoplasm Prostate Office Visit 05/14/2005 4:20p Mikhail Ambrocio MD 185 Malignant Neoplasm Prostate 550.90 Hernia Inguinal W/O Obstruct Or Gangrene Unilateral Unspec Office Visit 02/26/2005 9:20a Heather West 527.2 Salivary Gland C, RN [facility] [employer] Sialoadenitis Office Visit 02/24/2005 10:00a Ericka Lacy 272.2 Hyperlipidemia Mixed MD Mikhail 401.1 Hypertension Benign 414.01 Coronary Atherosclerosis Sycuan 185 Malignant Neoplasm Prostate V16.49 Family History Malignant Neoplasm Other Office Visit 08/23/2004 3:50p Mikhail Ambrocio 272.2 Hyperlipidemia Mixed 401.1 Hypertension Benign 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 600.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 Obstruction & Other Luts Office Visit 01/10/2004 1:40p Mikhail Ambrocio MD 401.1 Hypertension Benign 414.01 Coronary Atherosclerosis Sycuan 715.90 Osteoarthrosis Unspec Genlzd Or Localzd Site Unspec V72.84 Examination Preoperative Unspec Office Visit 10/06/2003 2:40p Mikhail Ambrocio MD V76.9 Screening Malignant Neoplasm Unspec 401.1 Hypertension Benign V76.44 Screening For Malig Leopoldo Prostate 244.9 Hypothyroidism Other Unspec V70.0 Exam (Adult) General Medical Routine AT Health Care Facility Office Visit 07/06/2002 6:30p Mikhail Ambrocio, 272.2 Hyperlipidemia Mixed 401.1 Hypertension Benign 600.0 Hypertrophy Benign Of Prostate 780.57 Apnea, Unspecified Sleep Apnea Office Visit 04/28/2001 2:00p Mikhail Ambrocio MD Office Visit 10/23/2000 10:50a Mikhail Ambrocio MD Plan of Treatment Future Appointment(s):05/19/2019 1:00 pm - Heather Noble RN [place] [employer] at [id number]/16/2018 11:30 am - Eduardo Hernandez DO at [facility], 2018 - Heather Noble, RN MS FNPM71.372 Other bursal cyst, LEFT ankle and footComments:DRESSING CHANGED TODAY AREA APPEARS TO BE PINK, LG CRTER IN CENTER , WHITE AND MOIST BUT NO DRAINAGE,THERE WAS SOME DRAINAGE, CLEAR ON THE DRESSINGMiscellaneous:IF NOT IMPROVING OVER NEXT MONTH CONSIDER PODIATRY AFDEVGLP55.9 Hypotension, unspecifiedMiscellaneous:CHECK BP DAILY AT HOME AND IF NOT IMPROVING AFTER HYDRATION WILL CHANGE BP MEDSC44.329 Squamous cell carcinoma of skin of other parts of faceComments:WILL CONTINUE TO OBSERVE AREA FOR SKIN CHANGES, THE EDGES WERE NEG FOR CANCER CELLS, STITCHES REMOVED TODAY AND STERISTRIPS [id number] Body mass index (BMI) 29.0-29.9, adult
--- OUTSIDE RECORDS SUMMARY | 2018-11-29 23:35 | XMS REPORT | Continuity of Care Document ---
:1935 External Reference #:[id number] Author Name Barney Hearn MD Address [address] [facility] [place] [address] Care Team Providers Name Role Phone Heather Noble, N.P. Primary Care Physician Unavailable Payers Date Identification Numbers Payment Provider Subscriber Effective: 2018 Policy Number: [id number] [employer] Tito Mcintosh [employer] Group Name: [employer] [address] [address] PayID: [id number] [place] [address] Problems Active Problems Provider Date Impotence of organic origin Barney Hearn MD Onset: 09/27/2010 Malignant tumor of prostate Barney Hearn MD Onset: 09/27/2010 Urinary incontinence Jason Pineda P.A.-C Onset: 10/08/2012 Nocturia - finding Jason Pineda P.A.-C Onset: 10/08/2012 Nocturia Jason Pineda P.A.-C Onset: 04/25/2014 Increased frequency of urination Jason Pineda P.A.-C Onset: 11/21/2015 Urge incontinence of urine RICK Amos Onset: 09/14/2017 History of malignant neoplasm of prostate RICK Amos Onset: 2017 History of radiation therapy Barney Hearn MD Onset: 08/27/2018 Microscopic hematuria RICK Nicole Onset: 10/21/2018 Bladder muscle dysfunction - overactive RICK Nicole Onset: 10/21/2018 Family History Date Family Member(s) Observation Comments General Colon Cancer Free Text Denies Prostate, Bladder, Kidney Cancer. No family history of kidney stones. Social History Type Date Description Comments Sex Unknown Marital Status Patient is Occupation Patient is retired Tobacco Use Start: Unknown Never Smoked Cigarettes Tobacco Use Start: Unknown Never Smoked Cigars Tobacco Use Start: Unknown Never Smoked A Pipe Smoking Status Reviewed: 10/21/18 Never Smoked A Pipe ETOH Use Occ Alcohol Intake Allergies, Adverse Reactions, Alerts Active Allergies Reaction Severity Comments Date PCN pt unsure of reaction 02/18/2005 Medications Active Medications SIG Qnty Indications Ordering Date Provider Cipro 1 by mouth in 1tabs [facility] 11/16/2018 250mg Tablets office for MD Nadiya procedure Toviaz 1 by mouth every 30tabs [facility] 08/27/2018 8mg Tablets ER day every morning MD Nadiya 24HR Jason Aspirin by mouth every day Unknown 325mg Tablets Advair Diskus Unknown 250-50mcg/Dose Aerosol Celebrex 1 po qod 2caps Unknown 200mg Capsules Multi Vitamin 1 by mouth every Unknown Tablets day Atorvastatin Calcium Unknown 80mg Tablets Olopatadine HCL Heather Noble 0.2% C, N.P. Solution Breo Ellipta Unknown 100-25mcg/Inh Aerosol Lisinopril-Hydrochlor 1 by mouth every Unknown othiazide day 10-12.5mg Tablets Cetirizine HCL 1 by mouth every Unknown 10mg day Tablets History Medications Bactrim DS 1 by mouth 6tabs [facility] 10/07/2018 - 800-160mg Tablets MD Nadiya 10/08/2018 Trospium Chloride ER take one capsule 30caps [facility] 08/27/2018 - 60mg Caps by mouth every MD Nadiya 08/27/2018 ER 24HR morning Myrbetriq 1 by mouth every 30tabs [facility] 09/14/2017 - 50mg Tablets ER 24HR day MD Nadiya 08/27/2018 Vesicare 1 by mouth every 30tabs [facility] 06/11/2016 - 10mg Tablets day MD Nadiya 09/14/2017 Vesicare 1 by mouth every 30tabs [facility] 05/21/2016 - 5mg Tablets day MD Nadiya 06/11/2016 Levitra 1/2-1 po qd prn 6tabs Nadiya, 09/27/2010 - 20mg Tablets Sara Corley 04/17/2013 Levitra 1/2-1 po qd prn, 2tabs Nadiya, 09/27/2010 - 20mg Tablets see voucher Sara Corley 04/17/2013 Oxybutynin Chloride ER Take One Tablet 90tabs Barney Owen 01/30/2010 - 10mg By Mouth AT MD Nadiya 05/21/2016 Tablets ER 24HR Bedtime Lisinopril Unknown - Tablets 04/17/2013 Lisinopril/Hydrochlorothi qd Unknown - azide 08/27/2018 20-12.5mg Tablets Chlorpheniramine Maleate 1 po qd Unknown - 4mg 05/20/2017 Tablets [place] 3 Unknown - 1200mg Capsules 10/07/2018 Clopidogrel Bisulfate Unknown - 75mg 10/07/2018 Tablets Vital Signs Date Vital Result Comment 11/16/2018 1:24pm Height 70 inches 5'10" Weight 205.00 lb Weight 92.988 kg BMI (Body Mass Index) 29.4 kg/m2 10/21/2018 11:17am Height 70 inches 5'10" Weight 210.00 lb Weight 95.256 kg BMI (Body Mass Index) 30.1 kg/m2 BP Systolic 123 mmHg BP Diastolic 77 mmHg Heart Rate 70 /min Post Void Residual ml 18 Bladder Scanner, Indication:frequency 10/07/2018 1:19pm BP Systolic 110 mmHg BP Diastolic 72 mmHg Heart Rate 69 /min Post Void Residual ml 5 Catheterization 08/27/2018 9:01am Height 70 inches 5'10" Weight 210.00 lb Weight 95.256 kg BMI (Body Mass Index) 30.1 kg/m2 BP Systolic 135 mmHg BP Diastolic 80 mmHg Heart Rate 65 /min Post Void Residual ml 3 cnv last voided 30 min prior 11/25/2017 12:59pm BP Systolic 123 mmHg BP Diastolic 77 mmHg Heart Rate 60 /min Post Void Residual ml 0 Bladder Scanner, Indication:urge incont 09/14/2017 10:31am Height 70 inches 5'10" Weight 218.00 lb Weight 98.885 kg BMI (Body Mass Index) 31.3 kg/m2 BP Systolic 116 mmHg BP Diastolic 64 mmHg Heart Rate 104 /min Respiratory Rate 16 /min 05/21/2017 11:06am Height 70 inches 5'10" Weight 209.00 lb Weight 94.802 kg BMI (Body Mass Index) 30.0 kg/m2 BP Systolic 119 mmHg BP Diastolic 74 mmHg Heart Rate 70 /min Post Void Residual ml 0 Bladder Scan 08/20/2016 1:57pm Height 70 inches 5'10" Weight 210.00 lb Weight 95.256 kg BMI (Body Mass Index) 30.1 kg/m2 BP Systolic 115 mmHg BP Diastolic 75 mmHg Heart Rate 76 /min Respiratory Rate 18 /min Post Void Residual ml 0 Bladder Scan, Indication: frequency 05/21/2016 10:42am Height 70 inches 5'10" Weight 210.00 lb Weight 95.256 kg BMI (Body Mass Index) 30.1 kg/m2 BP Systolic 130 mmHg BP Diastolic 80 mmHg Heart Rate 73 /min Post Void Residual ml 0 Bladder Scan 11/21/2015 10:59am Height 70 inches 5'10" Weight 213.00 lb Weight 96.617 kg BMI (Body Mass Index) 30.6 kg/m2 BP Systolic 128 mmHg BP Diastolic 88 mmHg Heart Rate 72 /min Post Void Residual ml 41 05/16/2015 11:02am BP Systolic 120 mmHg BP Diastolic 68 mmHg 11/03/2014 11:13am BP Systolic 113 mmHg BP Diastolic 74 mmHg Heart Rate 104 /min 04/25/2014 10:32am Height 70 inches 5'10" Weight 215.00 lb Weight 97.524 kg BMI (Body Mass Index) 30.8 kg/m2 BP Systolic 116 mmHg BP Diastolic 81 mmHg Heart Rate 69 /min 04/18/2013 11:38am Height 70 inches 5'10" Weight 219.00 lb Weight 99.338 kg BMI (Body Mass Index) 31.4 kg/m2 BP Systolic 122 mmHg BP Diastolic 58 mmHg Heart Rate 82 /min 10/08/2012 11:44am Height 70 inches 5'10" Weight 21.00 lb Weight 9.526 kg BMI (Body Mass Index) 3.0 kg/m2 BP Systolic 127 mmHg BP Diastolic 78 mmHg Heart Rate 72 /min 10/03/2011 11:42am Height 70 inches 5'10" Weight 221.00 lb BP Systolic 134 mmHg BP Diastolic 72 mmHg Heart Rate 87 /min Respiratory Rate 20 /min 09/27/2010 1:02pm Height 70 inches 5'10" Weight 233.50 lb BP Systolic 127 mmHg BP Diastolic 86 mmHg Heart Rate 65 /min Respiratory Rate 18 /min 09/27/2009 11:19am BP Systolic 127 mmHg BP Diastolic 79 mmHg Heart Rate 76 /min Respiratory Rate 18 /min O2 % BldC Oximetry 97 % 09/28/2008 11:18am BP Systolic 119 mmHg BP Diastolic 68 mmHg Heart Rate 90 /min Respiratory Rate 20 /min 03/27/2008 11:37am BP Systolic 153 mmHg BP Diastolic 83 mmHg Heart Rate 71 /min 09/23/2007 10:40am BP Systolic 136 mmHg BP Diastolic 79 mmHg Heart Rate 79 /min Respiratory Rate 20 /min 03/18/2007 10:50am BP Systolic 126 mmHg BP Diastolic 84 mmHg Heart Rate 80 /min Respiratory Rate 18 /min 09/15/2006 11:04am BP Systolic 127 mmHg BP Diastolic 69 mmHg Heart Rate 86 /min Respiratory Rate 18 /min 03/05/2006 10:31am BP Systolic 131 mmHg BP Diastolic 77 mmHg Heart Rate 65 /min 08/18/2005 10:32am BP Systolic 125 mmHg BP Diastolic 76 mmHg Heart Rate 75 /min 02/18/2005 10:10am BP Systolic 131 mmHg BP Diastolic 73 mmHg Heart Rate 76 /min Results Test Date Facility Test Result H/L Range Note 230 Ua Routine 11/16/2018 [facility] Ua Glucose Negative REF TO DR ADDRESS ON ORDER FOR (315)- - Ua Protein Negative Ua Nitrite Negative Ua Leuko Negative Ua Blood Negative Ua Color Not Entered Ua Ketones Negative Ua Clarity Not Entered Ua Specific [place] 1.025 1.003-1.030 Ua PH 5.5 5.0-7.5 Ua Bilirubin Negative Ua Urobilinogen 0.2 E.U./dL 0.0-1.0 Urine Microscopy 10/21/2018 [facility] Urine WBC 3-5 /HPF 0 - 5 [address] [place] [address] [phone] Urine RBC 3-5 /HPF + 0-2 Bacteria RARE /HPF Neg Crystals CA OXY RARE /HPF Neg Epithelial Cells 1+ /HPF Neg Sperm NEG /HPF Neg Yeast NEG /HPF Neg UACast NEG /LPF Neg 230 Ua Routine 10/21/2018 [facility] Ua Glucose Trace * REF TO DR ADDRESS ON ORDER FOR (315)- - Ua Protein Negative Ua Nitrite Negative Ua Leuko Negative Ua Blood 2+ * Ua Color Not Entered Ua Ketones Negative Ua Clarity Not Entered Ua Specific [place] 1.020 1.003-1.030 Ua PH 7.0 5.0-7.5 Ua Bilirubin Negative Ua Urobilinogen 0.2 E.U./dL 0.0-1.0 230 Ua Routine 10/07/2018 [facility] Ua Glucose Negative REF TO DR ADDRESS ON ORDER FOR (315)- - Ua Protein Negative Ua Nitrite Negative Ua Leuko Negative Ua Blood 1+ * Ua Color Not Entered Ua Ketones Negative Ua Clarity Not Entered Ua Specific [place] 1.020 1.003-1.030 Ua PH 5.5 5.0-7.5 Ua Bilirubin Negative Ua Urobilinogen 0.2 E.U./dL 0.0-1.0 230 Ua Routine 08/27/2018 [facility] Ua Glucose Negative REF TO DR ADDRESS ON ORDER FOR (315)- - Ua Protein Negative Ua Nitrite Negative Ua Leuko Negative Ua Blood Negative Ua Color Not Entered Ua Ketones Negative Ua Clarity Not Entered Ua Specific [place] 1.020 1.003-1.030 Ua PH 6.5 5.0-7.5 Ua Bilirubin Negative Ua Urobilinogen 0.2 E.U./dL 0.0-1.0 Laboratory test 08/27/2018 [facility] Total Psa 0.28 ng/mL 0.00-4.[address] [place] [address] [phone] 230 Ua Routine 11/25/2017 [facility] Ua Glucose Negative REF TO DR ADDRESS ON ORDER FOR (315)- - Ua Protein Negative Ua Nitrite Negative Ua Leuko Negative Ua Blood Negative Ua Color Not Entered Ua Ketones Negative Ua Clarity Not Entered Ua Specific [place] 1.025 1.003-1.030 Ua PH 6.5 5.0-7.5 Ua Bilirubin Negative Ua Urobilinogen 0.2 E.U./dL 0.0-1.0 Laboratory test 11/17/2017 [facility] Total Psa 0.53 ng/mL 0.00-4.[address] [place] [address] [phone] 230 Ua Routine 09/14/2017 [facility] Ua Glucose Negative REF TO DR ADDRESS ON ORDER FOR (315)- - Ua Protein Trace * Ua Nitrite Negative Ua Leuko Negative Ua Blood Negative Ua Color Not Entered Ua Ketones Negative Ua Clarity Not Entered Ua Specific [place] 1.025 1.003-1.030 Ua PH 6.0 5.0-7.5 Ua Bilirubin Negative Ua Urobilinogen 0.2 E.U./dL 0.0-1.0 230 Ua Routine 05/21/2017 [facility] Ua Glucose Negative REF TO DR ADDRESS ON ORDER FOR (315)- - Ua Protein Negative Ua Nitrite Negative Ua Leuko Negative Ua Blood 2+ * Ua Color Not Entered Ua Ketones Negative Ua Clarity Not Entered Ua Specific [place] 1.025 1.003-1.030 Ua PH 6.5 5.0-7.5 Ua Bilirubin Negative Ua Urobilinogen 1.0 E.U./dL 0.0-1.0 Laboratory test 05/19/2017 [facility] Total Psa 0.51 0.00-4.[address] [place] [address] ST Only ng/[place] [address] [phone] Laboratory test 11/19/2016 [facility] Total Psa 0.38 0.00-4.[address] [place] [address] ST Only ng/[place] [address] [phone] Laboratory test 10/31/2016 Outside Facility PSA Total 0.370 0.000-4.000 finding (315)- - BUN And 10/31/2016 Outside Facility BUN - Urea 30 High 6-26 Creatinine (315)- - Nitrogen Creatinine 1.1 0.5-1.4 230 Ua Routine 08/20/2016 [facility] Ua Glucose Negative REF TO DR ADDRESS ON ORDER FOR (315)- - Ua Protein Negative Ua Nitrite Negative Ua Leuko Negative Ua Blood Negative Ua Color Not Entered Ua Ketones Negative Ua Clarity Not Entered Ua Specifici [place] >=1.030 1.003-1.030 Ua PH 6.5 5.0-7.5 Ua Bilirubin Negative Ua Urobilinogen 0.2 E.U./dL 0.0-1.0 230 Ua Routine 05/21/2016 [facility] Ua Glucose Negative REF TO DR ADDRESS ON ORDER FOR (315)- - Ua Protein Negative Ua Nitrite Negative Ua Leuko Negative Ua Blood Negative Ua Color Not Entered Ua Ketones Negative Ua Clarity Not Entered Ua Specifici [place] 1.020 1.003-1.030 Ua PH 7.0 5.0-7.5 Ua Bilirubin Negative Ua Urobilinogen 0.2 E.U./dL 0.0-1.0 Laboratory test 05/14/2016 [facility] Total Psa 0.39 ng/mL 0.00-4.[address] [place] [address] [phone] 230 Ua Routine 11/21/2015 [facility] Ua Glucose Negative REF TO DR ADDRESS ON ORDER FOR (315)- - Ua Protein Negative Ua Nitrite Negative Ua Leuko Negative Ua Blood Negative Ua Color Not Entered Ua Ketones Negative Ua Clarity Not Entered Ua Specifici [place] 1.015 1.003-1.030 Ua PH 7.0 5.0-7.5 Ua Bilirubin Negative Ua Urobilinogen 0.2 E.U./dL 0.0-1.0 Laboratory test 11/15/2015 [facility] Total Psa 0.28 ng/mL 0.00-4.[address] [place] [address] [phone] 230 Ua Routine 05/16/2015 [facility] Ua Glucose Negative REF TO DR ADDRESS ON ORDER FOR (315)- - Ua Protein Negative Ua Nitrite Negative Ua Leuko Negative Ua Blood Negative Ua Color Not Entered Ua Ketones Negative Ua Clarity Not Entered Ua Specific [place] 1.015 1.003-1.030 Ua PH 6.0 5.0-7.5 Ua Bilirubin Negative Ua Urobilinogen 0.2 E.U./dL 0.0-1.0 Laboratory test 05/11/2015 [facility] Total Psa 0.24 ng/mL 0.00-4.[address] [place] [address] [phone] Laboratory test 11/01/2014 [facility] Total Psa 0.22 ng/mL 0.00-4.[address] [place] [address] [phone] #Ua Routine 04/25/2014 [facility] Ua Glucose Negative REF TO DR ADDRESS ON ORDER FOR (315)- - Ua Protein Negative Ua Nitrite Negative Ua Leuko Negative Ua Blood Negative Ua Color Not Entered Ua Ketones Negative Ua Clarity Not Entered Ua Specific [place] 1.020 1.003-1.030 Ua PH 7.0 5.0-7.5 Ua Bilirubin Negative Ua Urobilinogen 0.2 E.U./dL 0.0-1.0 Laboratory test 04/18/2014 [facility] Total Psa 0.17 ng/mL 0.00-4.[address] [place] [address] [phone] #Ua Routine 04/18/2013 [facility] Ua Glucose Negative REF TO DR ADDRESS ON ORDER FOR (315)- - Ua Protein Negative Ua Nitrite Negative Ua Leuko Negative Ua Blood Negative Ua Color Not Entered Ua Ketones Trace * Ua Clarity Not Entered Ua Specific [place] 1.020 1.003-1.030 Ua PH 5.5 5.0-7.5 Ua Bilirubin Negative Ua Urobilinogen 0.2 E.U./dL 0.2-1 Laboratory test 04/11/2013 [facility] Total PSA 0.13 ng/mL 0.00-4.[address] [place] [address] [phone] #Ua Routine 10/08/2012 [facility] Ua Glucose Negative REF TO DR ADDRESS ON ORDER FOR (315)- - Ua Protein Negative Ua Nitrite Negative Ua Leuko Negative Ua Blood Negative Ua Color Not Entered Ua Ketones Negative Ua Clarity Not Entered Ua Specific [place] 1.020 Ua PH 7.0 Ua Bilirubin Negative Ua Urobilinogen 0.2 E.U./dL Laboratory test 10/06/2012 [facility] Total PSA 0.09 ng/mL 0.00-4.[address] [place] [address] [phone] Laboratory test 10/01/2011 [facility] PSA Total 0.13 ng/ml 0-4.0 finding ng/ml Laboratory test 01/29/2011 [facility] Import PSA Total 0.11 ng/ml 0-4.0 finding ng/ml Laboratory test 09/25/2010 [facility] Import PSA Total 1.24 NG/ML 0-4.0 finding ng/ml Laboratory test 03/27/2010 [facility] Import PSA Total 0.07 NG/ML 0-4.0 finding ng/ml Laboratory test 09/26/2009 [facility] Import PSA Total 0.11 ng/ml 0-4.0 finding ng/ml Laboratory test 03/28/2009 [facility] Import PSA Total 0.18 NG/ML 0-4.0 finding ng/ml Laboratory test 09/27/2008 [facility] Import PSA Total <0.04 NG/ML 0-4.0 finding ng/ml Laboratory test 03/22/2008 [facility] Import PSA Total <0.04 NG/ML 0-4.0 finding ng/ml Laboratory test 09/21/2007 [facility] Import PSA Total <0.04 NG/ML 0-4.0 finding ng/ml Laboratory test 03/17/2007 [facility] Import PSA Total <0.04 ng/ml 0-4.0 finding ng/ml Laboratory test 09/09/2006 [facility] Import PSA Total 0.07 ng/ml 0-4.0 finding ng/ml Laboratory test 02/25/2006 [facility] Import PSA Total 0.07 ng/ml 0-4.0 finding ng/ml Laboratory test 08/13/2005 [facility] Import PSA Total 0.06 NG/ML 0-4.0 finding ng/ml Laboratory test 01/30/2005 [facility] Import PSA Total .10 finding Procedures Date Code Description Status 11/16/2018 91322 Cystourethroscopy, Separate Procedure Completed 10/21/2018 27026 Bladder Scan, Post Voiding Residual Urine Completed 10/21/2018 34101 Urodynamics, Complex Uroflowmetry Eg Calibrated Electronic Completed Office 10/07/2018 28413 Urodynamics, Voiding Pressure Studies Intra Abdominal Tech Completed Comp 10/07/2018 18316 Urodynamics, Voiding Pressure Studies Intra Abdominal Prof Completed Comp 10/07/2018 23888 Urodynamics, Electromyography Studies EMG Of Anal Or Completed Urethra TC 10/07/2018 16848 Urodynamics, Electromyography Studies EMG Of Anal Or Completed Urethra pc 10/07/2018 58632 Complex Cystometrogram, With Voiding Pressure Studies Tech Completed Comp 10/07/2018 98929 Complex Cystometrogram, With Voiding Pressure Studies Prof Completed Comp 11/25/2017 83802 Bladder Scan, Post Voiding Residual Urine Completed 05/21/2017 79454 Bladder Scan, Post Voiding Residual Urine Completed 08/20/2016 87649 Bladder Scan, Post Voiding Residual Urine Completed 05/21/2016 44674 Bladder Scan, Post Voiding Residual Urine Completed 11/21/2015 95817 Bladder Scan, Post Voiding Residual Urine Completed 09/27/2010 45532 Bladder Scan, Post Voiding Residual Urine Completed 09/28/2008 45011 Bladder Scan, Post Voiding Residual Urine Completed 09/23/2007 30762 Bladder Scan, Post Voiding Residual Urine Completed 03/18/2007 88534 Bladder Scan, Post Voiding Residual Urine Completed 03/05/2006 23420 Bladder Scan, Post Voiding Residual Urine Completed 06/06/2004 76415 Chemotherapy Injection Completed 03/01/2004 42403 Chemotherapy Injection Completed Encounters Type Date Location Provider Dx Diagnosis Office Visit 11/16/2018 Jacquie/ PadminiMHever Owen N39.41 Urge incontinence 1:20p Urology MD Nadiya R35.1 Nocturia Z92.3 Personal history of irradiation Z85.46 Personal history of malignant neoplasm of prostate Office Visit 10/21/2018 11:20a Jacquie/ PadminiMHever Rascon N39.41 Urge incontinence Urology RICK Daley Z85.46 Personal history of malignant neoplasm of prostate Z92.3 Personal history of irradiation R31.29 Other microscopic hematuria N32.81 Overactive bladder Office Visit 08/27/2018 9:00a Jacquie/ Hilton Hearn R35.1 Nocturia Urology N39.41 Urge incontinence Z92.3 Personal history of irradiation Z85.46 Personal history of malignant neoplasm of prostate Office Visit 11/25/2017 1:00p Charlie WashingtonMHever Romeo N39.41 Urge incontinence Urology PA R35.1 Nocturia Z85.46 Personal history of malignant neoplasm of prostate Office Visit 09/14/2017 10:20a Jacquie/ PadminiMHever Romeo R35.0 Frequency of Urology PA micturition C61 Malignant neoplasm of prostate N39.41 Urge incontinence Office Visit 05/21/2017 11:00a Jacquie/ PadminiMJuan Saldaña1 Malignant Urology PA neoplasm of prostate R35.0 Frequency of micturition R35.1 Nocturia Office Visit 08/20/2016 2:00p Jacquie/ PadminiMJason Bone, R35.0 Frequency of Urology P.A.-C micturition R32 Unspecified urinary incontinence Office Visit 05/21/2016 10:40a Jacquie/ Jason Oh, C61 Malignant neoplasm Urology P.A.-C of prostate R35.1 Nocturia Office Visit 11/21/2015 11:00a Jacquie/ Jason Oh, C61 Malignant neoplasm Urology P.A.-C of prostate R35.0 Frequency of micturition R32 Unspecified urinary incontinence Office Visit 05/16/2015 11:00a Jacquie/ Jason Oh, C61 Malignant neoplasm Urology P.A.-C of prostate R32 Unspecified urinary incontinence Office Visit 11/03/2014 11:00a Jacquie/ Jason Oh, 185 Malignant Neoplasm Urology P.A.-C Prostate 607.84 Impotence Organic Origin 788.30 Incontinence Urinary Unspec Office Visit 04/25/2014 10:20a Jacquie/ Jason Oh, 185 Malignant Neoplasm Urology P.A.-C Prostate 607.84 Impotence Organic Origin 788.43 Nocturia Office Visit 04/18/2013 11:40a Jacquie/ Jason Oh, 185 Malignant Neoplasm Urology P.A.-C Prostate 607.84 Impotence Organic Origin 788.43 Nocturia Office Visit 10/08/2012 11:40a Jacquie/ Jason Oh, 185 Malignant Neoplasm Urology P.A.-C Prostate 607.84 Impotence Organic Origin 788.30 Incontinence Urinary Unspec 788.43 Nocturia Plan of Treatment Future Appointment(s):03/03/2019 9:40 am - RICK Nicole at [facility]/ [facility] [id number]/01/2019 10:30 am - Jacquie Nurse at [facility]/ [facility] [id number] - Barney Hearn MDN39.41 Urge incontinenceComments:Urge Incontinence , intermittent. Improved over past few days. Cystoscopy today, only finding of mucosal change related to radiation. I discussed his CMG finding, slight decrease in compliance. No bladder tumor, no urethral stricture or other finding on cystoscopy today. I discussed timed voiding, Sonny, offered Botox but his quality of life is OK at present. Observation, continue Toviaz. U/A neg today.R35.1 HwxsjtwfE21.3 Personal history of qmkbosywkwpY44.46 Personal history of malignant neoplasm of prostateComments:Has March appt for ongoing monitoring.AllNew Medication:Cipro 250 mg - 1 by mouth in office for procedureFollow up:Keep Mar appts
--- OUTSIDE RECORDS SUMMARY | 2018-11-29 23:35 | XMS REPORT | Continuity of Care Document ---
:1935 Author Organization [facility] Care Team Providers Name Role Phone MISSAEL ADDISON Primary Care Physician Allergies and Intolerances Code Code System Allergy Type Reaction Severity Start End Date Status Substance Date 7986 RXNorm Penicillins Drug unknown Unknown Active allergy 5 (disorder) Medications RxNorm Medication Dose Route Instructions Start End Status Date Date 6484061 24 HR mirabegron 50 MG 50 mg oral orally daily Active Extended Release Oral Tablet Advair Diskus Inhaler 1 inh inhalation inhaled 2 times Active 250 mcg-50 mcg/Dose per day 1191 Aspirin 81 mg oral orally every Active evening Cetirizine Oral 10 mg oral orally daily as Active needed. Fish Oil 1000 mg oral orally every Active evening 19780104 Hydrochlorothiazide 1 tab oral orally daily Active 12.5 MG / Lisinopril 20 MG Oral Tablet Problems Code Code System Problem Name Start Date End Date Status 79181599 SNOMED-CT Hypertensive disorder U Active 8950530 SNOMED-CT Arthritis U Active 778339761 SNOMED-CT Carcinoma of prostate U Active 870961403 SNOMED-CT Asthma U Active Procedures Code Code System Procedure Date 194406814 SNOMED CT Tonsillectomy U 282016659 SNOMED CT Arthroscopy of knee U Results No data in the system Social History Code Code System Social History Observation Description Dates Observed 336158922 SNOMED CT Current Smoking Status Never smoker UNK AdministrativeGender Sex Assigned At Unknown Vital Signs No data in the system Goals Section No data in the system Health Concerns No data in the systemEncounter Diagnosis Date Code Code System Diagnosis Status I63.332 ICD10 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 Advance Directives *RHIO - CONSENT IS YES Directive Type Effective Date Academic Dean Notes Supporting Document Name Address Phone No Directive Type 07/07/2018 12:42:08 Not Specified Not Specified Not Specified None No specified PM PT STATES NO ADVANCE DIRECTIVES Directive Type Effective Date Academic Dean Notes Supporting Document Name Address Phone No Directive Type 10/26/2014 8:25:00 Not Specified Not Specified Not Specified None No specified AM Family History No data in the system Functional Status No data in the system Immunizations Vaccine Code Code System Vaccine Name Date Status FLU VACCINE 2013 Completed Medical Equipment No data in the system Mental Status No data in the system Assessment and Plan Assessments No data in the systemPlan Of Treatment No data in the systemPending Tests No data in the system Hospital Discharge Instructions No data in the system Reason for Visit Reason for Visit NEW PT EVAL: CVA
--- OUTSIDE RECORDS SUMMARY | 2018-11-29 23:35 | XMS REPORT | Continuity of Care Document ---
:1935 Author Organization [facility] Care Team Providers Name Role Phone MISSAEL ADDISON Primary Care Physician Allergies and Intolerances Code Code System Allergy Type Reaction Severity Start End Date Status Substance Date 7986 RXNorm Penicillins Drug unknown Unknown Active allergy 5 (disorder) Medications RxNorm Medication Dose Route Instructions Start End Status Date Date 7067994 24 HR mirabegron 50 MG 50 mg [...] Problem Name Start Date End Date Status 70953237 SNOMED-CT Hypertensive disorder U Active 6568343 SNOMED-CT Arthritis U Active 748995010 SNOMED-CT Carcinoma of prostate U Active 733085558 SNOMED-CT Asthma U Active Procedures Code Code System Procedure Date 831390748 SNOMED CT Tonsillectomy U 465942130 SNOMED CT Arthroscopy of knee U Results No data in the system Social History Code Code System Social History Observation Description Dates Observed 047578655 SNOMED CT Current Smoking Status Never smoker UNK AdministrativeGender Sex Assigned At Unknown Vital Signs No data in the system Goals Section No data in the system Health Concerns No data in the systemEncounter Diagnosis Date Code Code System Diagnosis Status I63.332 ICD10 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
--- NOTE | 2018-11-29 23:37 | ED ---
Syncope/Near Syncope - HPI Summary HPI Summary: This patient is a 83 year old M brought to ED via EMS with a chief complaint of dizziness since 2099. Patient was sitting on his porch outside for half an hour and felt faint, dizzy, and nauseous both while sitting and when he tried to stand up. Patient had been in the sun all day mowing the lawn. He was helped into the house in the cold, given Zofran and a cool cloth and the dizziness went away. He denies feeling any CP, SOB. He has been drinking liquids today. 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 He did not receive tPA. Patient also has a pressure sore on the left foot since a month ago but denies neuropathy. For care, the sore is usually washed with soap and water and ointment is applied. The sore is then wrapped in a bandage. The patient reports that some times the sore hurts, but he denies any pain in the room. The patient rates the pain 0/10 in severity. Symptoms aggravated by nothing. Symptoms alleviated by nothing. - History Of Current Complaint Chief Complaint: EDSyncope Time Seen by Provider: 11/29/18 22:39 Hx Obtained From: Patient, Family/Communications Professor Onset/Duration: Gradual Onset, Resolved Context: Other - Near LOC Activity At Onset: At Rest Aggravating Factor(s): Nothing Alleviating Factor(s): Nothing Associated Signs And Symptoms: Negative - Pain, Other - Nausea - Allergies/Home Medications Allergies/Adverse Reactions: Allergies Allergy/AdvReac Type Severity Reaction Status Date / Time Penicillins Allergy Rash Verified 11/29/18 23:24 Home Medications: Home Medications Celecoxib [Celebrex] 200 mg PO DAILY 11/29/18 [History Confirmed 11/29/18] Cetirizine HCl [Zyrtec] 10 mg PO DAILY 11/29/18 [History Confirmed 11/29/18] Collagenase 250 MG/GM OINT* [Santyl 250 mg/gm Oint*] 250 mg TOPICAL QID [History Confirmed 11/29/18] Fesoterodine (NF) [Toviaz (NF)] 8 mg PO DAILY 11/29/18 [History Confirmed ] Fluticasone/Vilanterol [Breo Ellipta 200-25 Mcg INH] 200 mg INH BID 11/29/18 [ History Confirmed 11/29/18] Lisinopril/HCTZ 10.5(NF) [Zestoretic 10.5(NF)] 10 mg PO DAILY 11/29/18 [ History Confirmed 11/29/18] PMH/Surg Hx/FS Hx/Imm Hx Endocrine/Hematology History: Denies: Hx Diabetes Cardiovascular History: Reports: Hx Hypertension Respiratory History: Reports: Hx Asthma Neurological History: Reports: Hx CVA - Cancer History Cancer Type, Location and Year: Prostate - Surgical History Surgery Procedure, Year, and Place: 2006 tendon knee repair bilat. 2003 seed implant for prostate cancer. 2014 carpal tunnel bilat. 2017 cataract Infectious Disease History: No Infectious Disease History: Denies: Traveled Outside the [place] in Last 30 Days - Family History Known Family History: Positive: Diabetes - Social History Alcohol Use: None Hx Substance Use: No Substance Use Type: Reports: None Hx Tobacco Use: No Smoking Status (MU): Never Smoked Tobacco Review of Systems Negative: Chest Pain Negative: Shortness Of Breath Positive: Nausea Negative: Arthralgia, Myalgia Neurological: Other - Faint, dizziness All Other Systems Reviewed And Are Negative: Yes Physical Exam - Summary Physical Exam Summary: VITAL SIGNS: Reviewed. GENERAL: Patient is a morbidly obese male who is lying comfortable in the stretcher. Patient is not in any acute respiratory distress. HEAD AND FACE: No signs of trauma. No ecchymosis, hematomas or skull depressions. No sinus tenderness. EYES: PERRLA, EOMI x 2, No injected conjunctiva, no nystagmus. EARS: Hearing grossly intact. Ear canals and tympanic membranes are within normal limits. MOUTH: Oropharynx within normal limits. NECK: Supple, trachea is midline, no adenopathy, no JVD, no carotid bruit, no c- spine tenderness, neck with full ROM CHEST: Symmetric, no tenderness at palpation LUNGS: Clear to auscultation bilaterally. No wheezing or crackles. CVS: Regular rate and rhythm, S1 and S2 present, no murmurs or gallops appreciated. ABDOMEN: belly distended EXTREMITIES: FROM in all major joints, no edema, no cyanosis or clubbing. NEURO: Alert and oriented x 3. No acute neurological deficits. Speech is normal and follows commands. SKIN: small second degree ulcer over left first toe Triage Information Reviewed: Yes Vital Signs On Initial Exam: Initial Vitals Temp Pulse Resp BP Pulse Ox 97.9 F 64 18 92/58 96 11/29/18 22:28 11/29/18 22:28 11/29/18 22:28 11/29/18 22:28 11/29/18 22:28 Vital Signs Reviewed: Yes Diagnostics - Vital Signs Vital Signs Temp Pulse Resp BP Pulse Ox 11/29/18 22:28 97.9 F 64 18 92/58 96 - Laboratory Result Diagrams: 11/29/18 23:48 11/29/18 23:48 Lab Statement: Any lab studies that have been ordered have been reviewed, and results considered in the medical decision making process. - EKG 2251 Cardiac Rate: NL EKG Rhythm: Sinus Rhythm Summary of EKG Findings: NSR at 64 BPM, first degre AV block, T wave inversion in inferior leads. Re-Evaluation - Re-Evaluation First Eval Re-Evaluation Time: 01:05 Change: Improved Comment: Patient reports feeling better. He is ambulatory and asymptomatic. He has provided urine, so I will check the urine and send him home if it is negative. Course/Dx Course Of Treatment: This patient is a 83 year old M brought to ED via EMS with a chief complaint of dizziness since 2099. EKG at 2251 revealed NSR at 64 BPM, first degre AV block, T wave inversion in inferior leads. In the ED course, patient received fluids. Blood work and UA obtained. Patient reports feeling better. He is ambulatory and asymptomatic. I recommended the patient hold his hypertension medication. Patient will be discharged home with dx of dehydration and dizziness. Patient understands and agrees with this plan. - Diagnoses Provider Diagnoses: Dehydration, Dizziness Discharge - Sign-Out/Discharge Documenting (check all that apply): Patient Departure - Discharge Patient Received Moderate/Deep Sedation with Procedure: No - Discharge Plan Condition: Stable Disposition: HOME Patient Education Materials: Dehydration (ED), Dizziness (ED) Referrals: [facility] [Outside] - 2 Days Additional Instructions: Follow up with your primary care provider in 1-2 days. Increase oral fluid intake. Hold your hypertension medication. RETURN TO THE ER FOR WORSENING OR CHANGING SYMPTOMS. - Attestation Statements Document Initiated by Scribe: Yes Documenting Scribe: Omid Del Toro Provider For Whom Scribe is Documenting (Include Credential): Nazia Shine MD Scribe Attestation: Omid Suggs, scribed for Nazia Shine MD on 11/30/18 at 0211. Status of Scribe Document: Ready
[2018-11-29 23:56] LABS: ABS Eosinophils 0.1 10^3/ul (0-0.6); ABS Lymphocytes 0.9 10^3/ul (1.0-4.8); ABS Monocytes 0.5 10^3/ul (0-0.8); ABS Neutrophils 5.7 10^3/ul (1.5-7.7); Hematocrit 36 % (42-52); Hemoglobin 12.5 g/dL (14.0-18.0); Lymphocyte % 12.8 %; Mean Corpuscular HGB Conc 35 g/dL (31-36); Mean Corpuscular Hemoglobin 32 pg (27-31); Mean Corpuscular Volume 91 fL (80-94); Mean Platelet Volume 6.6 fL (7.4-10.4); Platelet Count 153 10^3/uL (150-450); Red Blood Count 3.94 10^6 /uL (4.18-5.48); Red Cell Distribution Width 14 % (10-15); White Blood Count 7.4 10^3/uL (3.5-10.8)
[2018-11-30 00:03] LABS: INR 1.07 (0.82-1.09)
[2018-11-30 00:04] LABS: Activated Partial Thrombo Time 20.9 seconds (26.0-38.0)
[2018-11-30 00:14] LABS: Albumin 3.8 g/dL (3.2-5.2); Albumin/Globulin Ratio 1.7 (1-3); BUN/Creatinine Ratio 27.7 (8-20); Calcium 8.8 mg/dL (8.6-10.3); EGFR Non-African American 58.7 (>60); Globulin 2.2 g/dL (2-4); Magnesium 1.9 mg/dL (1.9-2.7)
[2018-11-30 00:51] LABS: Potassium 4.6 mmol/L (3.5-5.0)
[2018-11-30 00:59] LABS: TSH (Thyroid Stimulating Horm) 2.78 mcIU/mL (0.34-5.60)
[2018-11-30 01:24] LABS: Urine Appearance Clear; Urine Bilirubin Negative (Negative); Urine Blood Negative (Negative); Urine Color Yellow; Urine Glucose Negative (Negative); Urine Ketones Negative (Negative); Urine Nitrite Negative (Negative); Urine Protein Negative (Negative); Urine Specific Gravity 1.016 (1.010-1.030); Urine Urobilinogen Negative (Negative)
== END 2018-11-30 02:34 | disposition home or self-care (01) ==
LOC: ED 22:19
DX: E86.0 Dehydration (principal); R42 Dizziness and giddiness; Z88.0 Allergy status to penicillin; I10 Essential (primary) hypertension; Z86.73 Personal history of transient ischemic attack (TIA), and cerebral infarction without residual deficits; Z85.46 Personal history of malignant neoplasm of prostate
CPT/HCPCS: 36415; 80053; 81003; 82550; 83735; 84443; 84484; 85025; 85610; 85730; 93005; 96360; 99283

== ENCOUNTER 2020-01-05 04:26 | Inpatient (IN) ==
[2020-01-05] MEDS ORDERED: Albuterol 0.5% CONC NEB.SOL 5 mg/ml 20 ml BOT INH ONE (04:33)
[2020-01-05] MEDS ORDERED: Magnesium Sulfate 2 gm BAG 2 GM/50 ML BAG IVPB ONE (04:33)
[2020-01-05] MEDS ORDERED: Dexamethasone IV 4 MG/ML VIAL 1 ml VIAL IV SLOW PU ONE (04:33)
[2020-01-05 05:04] LABS: ABS Basophils 0.1 10^3/ul (0-0.2); ABS Eosinophils 0.5 10^3/ul (0-0.6); ABS Lymphocytes 1.1 10^3/ul (1.0-4.8); ABS Monocytes 0.6 10^3/ul (0-0.8); ABS Neutrophils 4.8 10^3/ul (1.5-7.7); Eosinophil % 6.5 %; Hematocrit 42 % (42-52); Hemoglobin 14.8 g/dL (14.0-18.0); Lymphocyte % 16.1 %; Mean Corpuscular HGB Conc 35 g/dL (31-36); Mean Corpuscular Hemoglobin 33 pg (27-31); Mean Corpuscular Volume 94 fL (80-94); Mean Platelet Volume 6.8 fL (7.4-10.4); Platelet Count 147 10^3/uL (150-450); Red Blood Count 4.48 10^6 /uL (4.18-5.48); Red Cell Distribution Width 14 % (10-15); White Blood Count 7.1 10^3/uL (3.5-10.8)
[2020-01-05 05:20] LABS: Albumin 4.5 g/dL (3.2-5.2); Albumin/Globulin Ratio 1.8 (1-3); Calcium 9.6 mg/dL (8.6-10.3); EGFR African American 95.3 (>60); EGFR Non-African American 78.8 (>60); Globulin 2.5 g/dL (2-4); Potassium 4.4 mmol/L (3.5-5.0); Total Bilirubin 1.6 mg/dL (0.2-1.0)
[2020-01-05] MEDS ORDERED: Albuterol 2.5mg/3 ml (0.083%) NEB.SOLN INH PRN ×2 (06:17→14:11)
[2020-01-05] MEDS ORDERED: Ondansetron 4 mg VIAL 2 MG/ML 2 ml VIAL IV PRN (06:17)
[2020-01-05 06:27] LABS: INR 1.52 (0.82-1.09)
[2020-01-05] MEDS ORDERED: NS 0.9% 1000 ml BAG 1,000 ML IV SCH (06:30)
[2020-01-05] MEDS ORDERED: cefTRIAXone 1 gm/50 mL NS BAG 1 GM/50 ML BAG IVPB SCH (08:00)
[2020-01-05] MEDS: Albuterol/Ipratropium NEB.SOL (2.5/0.5 MG) 3 ML NEB.SOLN INH SCH ×5 (08:09→21:15)
[2020-01-05] MEDS ORDERED: Mometasone/Formoter 200/5 MDI INH SCH (09:00)
[2020-01-05] MEDS: methylPREDNISolone 125 mg 2 ML VIAL IV SCH ×2 (09:17→17:38)
[2020-01-05] MEDS: Azithromycin 500 mg/250 ml NS 500 MG/250 ML BAG IVPB SCH (09:18)
[2020-01-05] MEDS: FESOTERODINE 8 MG PO SCH (09:24)
[2020-01-05] MEDS: Albuterol HFA INHALER 8 gm MDI INH PRN ×2 (21:08→23:10)
[2020-01-06] MEDS: Albuterol/Ipratropium NEB.SOL (2.5/0.5 MG) 3 ML NEB.SOLN INH SCH ×3 (00:02→07:08)
[2020-01-06 04:33] LABS: ABS Lymphocytes 0.5 10^3/ul (1.0-4.8); ABS Monocytes 0.2 10^3/ul (0-0.8); ABS Neutrophils 7.8 10^3/ul (1.5-7.7); Hematocrit 41 % (42-52); Hemoglobin 13.7 g/dL (14.0-18.0); Lymphocyte % 6.1 %; Mean Corpuscular HGB Conc 34 g/dL (31-36); Mean Corpuscular Hemoglobin 34 pg (27-31); Mean Corpuscular Volume 100 fL (80-94); Mean Platelet Volume 7.1 fL (7.4-10.4); Nucleated Red Blood Cells % 0.1; Platelet Count 124 10^3/uL (150-450); Red Blood Count 4.07 10^6 /uL (4.18-5.48); Red Cell Distribution Width 14 % (10-15); White Blood Count 8.6 10^3/uL (3.5-10.8)
[2020-01-06 04:48] LABS: Troponin I 0.01 ng/mL (<0.03)
[2020-01-06 04:49] LABS: Calcium 9.2 mg/dL (8.6-10.3); Magnesium 2.1 mg/dL (1.9-2.7); Potassium 4.2 mmol/L (3.5-5.0)
[2020-01-06 04:54] LABS: BUN/Creatinine Ratio 31.7 (8-20); EGFR African American 85.6 (>60); EGFR Non-African American 70.7 (>60)
[2020-01-06 05:37] LABS: TSH (Thyroid Stimulating Horm) 0.75 mcIU/mL (0.34-5.60)
[2020-01-06] MEDS ORDERED: Magnesium Sulfate 2 gm BAG 2 GM/50 ML BAG IVPB ONE (09:33)
[2020-01-06] MEDS: Azithromycin 500 mg/250 ml NS 500 MG/250 ML BAG IVPB SCH (10:10)
[2020-01-06] MEDS: methylPREDNISolone SOD 40 mg/ml 1 ml VIAL IV SCH ×2 (10:11→22:52)
[2020-01-06] MEDS ORDERED: Perflutren Lipid Microsphere 3 ML VIAL ONE (10:52)
[2020-01-06] MEDS: cefTRIAXone 1 gm/50 mL NS BAG 1 GM/50 ML BAG IVPB SCH ×2 (12:34→22:52)
[2020-01-06 14:53] LABS: BUN/Creatinine Ratio 31.6 (8-20); Calcium 9.6 mg/dL (8.6-10.3); EGFR African American 88.6 (>60); EGFR Non-African American 73.2 (>60)
[2020-01-06] MEDS: FESOTERODINE 8 MG PO SCH (15:06)
[2020-01-06] MEDS ORDERED: Haloperidol 5 mg/ml SDV IV/IM 5 MG/ML AMP IV SLOW PU ONE (20:52)
[2020-01-06] MEDS: Albuterol/Ipratropium NEB.SOL (2.5/0.5 MG) 3 ML NEB.SOLN INH PRN (23:27)
[2020-01-07 00:20] LABS: BUN/Creatinine Ratio 35.2 (8-20); Calcium 9.2 mg/dL (8.6-10.3); EGFR African American 81.8 (>60); EGFR Non-African American 67.6 (>60); Magnesium 2.3 mg/dL (1.9-2.7); Potassium 4.2 mmol/L (3.5-5.0)
[2020-01-07] MEDS ORDERED: Haloperidol 5 mg/ml SDV IV/IM 5 MG/ML AMP IM ONE (07:19)
[2020-01-07] MEDS: Albuterol HFA INHALER 8 gm MDI INH PRN (07:54)
[2020-01-07] MEDS: Mometasone/Formoter 200/5 MDI INH SCH (07:55)
[2020-01-07] MEDS: FESOTERODINE 8 MG PO SCH (08:24)
[2020-01-07] MEDS: DOXYcycline 100 MG in NS 0.9% 250 ml 250 ML IVPB SCH ×2 (08:24→20:59)
[2020-01-07] MEDS: methylPREDNISolone SOD 40 mg/ml 1 ml VIAL IV SCH (08:25)
[2020-01-07] MEDS: cefTRIAXone 1 gm/50 mL NS BAG 1 GM/50 ML BAG IVPB SCH ×2 (09:50→22:25)
[2020-01-07] MEDS: Albuterol/Ipratropium NEB.SOL (2.5/0.5 MG) 3 ML NEB.SOLN INH PRN ×3 (14:14→22:34)
[2020-01-08] MEDS: cefTRIAXone 1 gm/50 mL NS BAG 1 GM/50 ML BAG IVPB SCH (07:44)
[2020-01-08] MEDS: FESOTERODINE 8 MG PO SCH (07:48)
[2020-01-08 07:56] VITALS: BP 127/56
[2020-01-08] MEDS: Mometasone/Formoter 200/5 MDI INH SCH (08:03)
[2020-01-08] MEDS: DOXYcycline 100 MG in NS 0.9% 250 ml 250 ML IVPB SCH (08:26)
[2020-01-08] MEDS: Albuterol/Ipratropium NEB.SOL (2.5/0.5 MG) 3 ML NEB.SOLN INH PRN (10:12)
== END 2020-01-08 10:25 | disposition home or self-care (01) | DRG 189 ==
LOC: ED 04:26 → ICU 06:08 → MEDTELE 01-06 16:00
PROVIDERS: ADMIT Nurse Practitioner Family; ATTEND Internal Medicine

== ENCOUNTER 2024-02-25 17:04 | Inpatient (IN) ==
[2024-02-25 22:51] LABS: Hemoglobin 11.6 g/dL (13.2-16.3); Mean Corpuscular Hemoglobin 34.5 pg (27-33); Mean Corpuscular Hgb Conc 35.1 g/dL (31-36); Mean Corpuscular Volume 98.1 fL (80-97); Red Blood Count 3.37 10^6/uL (4.06-5.63); White Blood Count 10.1 10^3/uL (3.6-10.2)
[2024-02-25 22:52] LABS: INR 1.44 (0.85-1.14)
[2024-02-25] MEDS: Morphine 4 MG/ML VIAL (1 ml) IV ONE (23:02)
[2024-02-25 23:04] LABS: Albumin 3.9 g/dL (3.2-5.2); Calcium 8.8 mg/dL (8.6-10.3); Creatinine, Serum 0.68 mg/dL (0.67-1.17); Potassium 4.1 mmol/L (3.5-5.0); Total Bilirubin 1.5 mg/dL (0.2-1.0); Total Protein 5.9 g/dL (6.4-8.9); eGFR CKD-EPI 90.5 (>60)
[2024-02-25 23:36] LABS: Urine Appearance Extra Turbid; Urine Bilirubin Negative (Negative); Urine Blood 3+ (Negative); Urine Color Yellow; Urine Glucose Negative (Negative); Urine Ketones Negative (Negative); Urine Nitrite Negative (Negative); Urine Protein 1+ (>=30 mg/dL) (Negative); Urine Urobilinogen Negative (Negative); Urine pH 6.5 (5.0-8.0)
[2024-02-25 23:39] LABS: Urine Bacteria Absent /HPF (Absent); Urine Red Blood Cell 3+(>10/hpf) /HPF (0-Trace); Urine Squamous Epithelial Cell Present /HPF (Absent); Urine White Blood Cell 1+(6-10/hpf) /HPF (0-Trace)
[2024-02-25 23:47] LABS: ABS Eosinophils 0.1 10^3/uL (0.0-0.5); ABS Monocytes 0.4 10^3/uL (0.0-1.1); ABS Neutrophils 8.5 10^3/uL (1.5-7.6); Eosinophil % 0.8 %; Lymphocyte % 10.1 %; Mean Platelet Volume 6.5 fL (7.5-11.2); Platelet Count 99 10^3/uL (150-450)
[2024-02-26 02:46] LABS: Magnesium 1.9 mg/dL (1.9-2.7)
[2024-02-26 02:53] LABS: Direct Bilirubin 0.2 mg/dL (0.03-0.18); Indirect Bilirubin 1.3 mg/dL (0.3-1.0)
[2024-02-26] MEDS: Acetaminophen IV 1 GM/100ML 1,000 MG/100 ML BAG IV SCH (04:20)
[2024-02-26] MEDS: Magnesium Sulfate IV 1GM/100ML 1 GM/100 ML BAG IV ONE (05:20)
[2024-02-26 05:39] LABS: ABS Eosinophils 0.2 10^3/uL (0.0-0.5); ABS Lymphocytes 0.7 10^3/uL (1.0-4.8); ABS Monocytes 0.6 10^3/uL (0.0-1.1); ABS Neutrophils 7.7 10^3/uL (1.5-7.6); ABS Nucleated RBC 0.01 10^3/ul; Eosinophil % 2.2 %; Hematocrit 32.1 % (38-53); Hemoglobin 11.2 g/dL (13.2-16.3); Lymphocyte % 7.9 %; Mean Corpuscular Hemoglobin 34.1 pg (27-33); Mean Corpuscular Hgb Conc 34.8 g/dL (31-36); Mean Platelet Volume 6.9 fL (7.5-11.2); Nucleated Red Blood Cells % 0.1 %/100WBC (0.0-0.8); Platelet Count 94 10^3/uL (150-450); Red Blood Count 3.27 10^6/uL (4.06-5.63); Red Cell Distribution Width 14.8 % (12-17); White Blood Count 9.3 10^3/uL (3.6-10.2)
[2024-02-26 06:28] LABS: Calcium 8.6 mg/dL (8.6-10.3); Creatinine, Serum 0.67 mg/dL (0.67-1.17); Magnesium 1.8 mg/dL (1.9-2.7); Potassium 4.1 mmol/L (3.5-5.0); eGFR CKD-EPI 90.9 (>60)
[2024-02-26] MEDS: Magnesium Sulfate 2 gm BAG 2 GM/50 ML BAG IVPB ONE (08:21)
[2024-02-26] MEDS: Heparin 5000 UNITS/ML 1 mL VIAL SUBCUT ONE ×2 (09:08→22:27)
[2024-02-26 10:14] LABS: PSA Screen Ultra Sensitive 18.242 ng/mL (0-4.000)
[2024-02-26] MEDS ORDERED: Sulfur Hexaflouride MICROSPHR 25 MG VIAL IV PRN (11:08)
[2024-02-26] MEDS: Nystatin TOP POWDER 15 GM BTL TOPICAL SCH (11:13)
[2024-02-26] MEDS ORDERED: Sulfur Hexaflouride MICROSPHR 25 MG VIAL ONE (13:55)
[2024-02-26] MEDS: Sulfur Hexaflouride MICROSPHR 25 MG VIAL IV PRN (14:06)
[2024-02-26] MEDS: Lactated Ringers 1000 ml BAG 1,000 ML IV SCH (22:04)
[2024-02-27 05:21] LABS: Hematocrit 31.3 % (38-53); Hemoglobin 10.9 g/dL (13.2-16.3); Mean Corpuscular Hemoglobin 34.4 pg (27-33); Mean Corpuscular Hgb Conc 34.9 g/dL (31-36); Mean Corpuscular Volume 98.5 fL (80-97); Mean Platelet Volume 6.5 fL (7.5-11.2); Platelet Count 82 10^3/uL (150-450); Red Blood Count 3.18 10^6/uL (4.06-5.63); Red Cell Distribution Width 14.9 % (12-17); White Blood Count 6.2 10^3/uL (3.6-10.2)
[2024-02-27 05:48] LABS: Calcium 8.3 mg/dL (8.6-10.3); Creatinine, Serum 0.68 mg/dL (0.67-1.17); Magnesium 1.9 mg/dL (1.9-2.7); Potassium 4.1 mmol/L (3.5-5.0); eGFR CKD-EPI 90.5 (>60)
[2024-02-27] MEDS ORDERED: Dexamethasone IV 4 MG/ML VIAL 1 ml VIAL ONE (07:27)
[2024-02-27] MEDS ORDERED: Ondansetron 4 mg VIAL 2 MG/ML 2 ml VIAL ONE (07:27)
[2024-02-27] MEDS ORDERED: Phenylephrine IV 10 MG/ML 1 ml VIAL ONE (07:27)
[2024-02-27] MEDS ORDERED: Rocuronium 50 mg VIAL 10 mg/ml 5 ml VIAL (50 mg) ONE (07:27)
[2024-02-27] MEDS ORDERED: Propofol 10 MG/ML 20 ML BTL ONE (07:27)
[2024-02-27] MEDS ORDERED: Lidocaine 2% PF 5 ML VIAL ONE (07:27)
[2024-02-27] MEDS ORDERED: fentaNYL 100 mcg/2 ml 50 MCG/ML VIAL ONE ×3 (07:28→12:33)
[2024-02-27] MEDS ORDERED: ceFAZolin 2 GM PREMIX 2 GM/50 ML BAG ONE (07:53)
[2024-02-27] MEDS ORDERED: Ondansetron 4 mg VIAL 2 MG/ML 2 ml VIAL IV PRN (08:04)
[2024-02-27] MEDS ORDERED: fentaNYL 100 mcg/2 ml 50 MCG/ML VIAL IV PRN (08:04)
[2024-02-27] MEDS ORDERED: Naloxone 0.4 mg VIAL 0.4 mg/ml 1 ml VIAL IV PRN (08:04)
[2024-02-27] MEDS ORDERED: NS 0.45% 1000 ml BAG 1,000 ML IV SCH (09:00)
[2024-02-27] MEDS ORDERED: Polyethylene Glycol 3350 17 GM PACKET PO PRN (10:14)
[2024-02-27] MEDS ORDERED: Vancomycin 1,000 MG VIAL ONE (10:56)
[2024-02-27] MEDS: Buffered Lidocaine 1% SYRIN 1 ml INTRADERM ONE (12:54)
[2024-02-27] MEDS: Lactated Ringers 1000 ml BAG 1,000 ML IV SCH (12:54)
[2024-02-27] MEDS: Acetaminophen IV 1 GM/100ML 1,000 MG/100 ML BAG IV ONE (12:54)
[2024-02-27] MEDS: ceFAZolin 2 GM PREMIX 2 GM/50 ML BAG IV SCH (16:47)
[2024-02-27] MEDS: Magnesium Hydroxide LIQ 30 ML UDC PO SCH (21:52)
[2024-02-28 06:10] LABS: INR 1.34 (0.85-1.14)
[2024-02-28 06:12] LABS: ABS Lymphocytes 0.5 10^3/uL (1.0-4.8); ABS Monocytes 1.1 10^3/uL (0.0-1.1); ABS Neutrophils 9.4 10^3/uL (1.5-7.6); ABS Nucleated RBC 0.01 10^3/ul; Eosinophil % 0.2 %; Hematocrit 26.6 % (38-53); Hemoglobin 9.5 g/dL (13.2-16.3); Lymphocyte % 4.3 %; Mean Corpuscular Hemoglobin 35.5 pg (27-33); Mean Corpuscular Hgb Conc 35.8 g/dL (31-36); Mean Corpuscular Volume 99.1 fL (80-97); Mean Platelet Volume 6.7 fL (7.5-11.2); Nucleated Red Blood Cells % 0.1 %/100WBC (0.0-0.8); Platelet Count 81 10^3/uL (150-450); Red Blood Count 2.68 10^6/uL (4.06-5.63); Red Cell Distribution Width 15.1 % (12-17)
[2024-02-28 06:31] LABS: Albumin 3.4 g/dL (3.2-5.2); Creatinine, Serum 0.77 mg/dL (0.67-1.17); Globulin 1.7 g/dL (2-4); Potassium 4.5 mmol/L (3.5-5.0); Total Bilirubin 1.5 mg/dL (0.2-1.0); Total Protein 5.1 g/dL (6.4-8.9); eGFR CKD-EPI 87.2 (>60)
[2024-02-29 05:43] LABS: ABS Eosinophils 0.4 10^3/uL (0.0-0.5); ABS Lymphocytes 1.2 10^3/uL (1.0-4.8); ABS Neutrophils 5.9 10^3/uL (1.5-7.6); Eosinophil % 4.2 %; Hematocrit 25.1 % (38-53); Hemoglobin 8.7 g/dL (13.2-16.3); Lymphocyte % 14.2 %; Mean Corpuscular Hemoglobin 34.8 pg (27-33); Mean Corpuscular Hgb Conc 34.7 g/dL (31-36); Mean Corpuscular Volume 100.5 fL (80-97); Mean Platelet Volume 6.7 fL (7.5-11.2); Nucleated Red Blood Cells % 0.1 %/100WBC (0.0-0.8); Platelet Count 89 10^3/uL (150-450); Red Cell Distribution Width 15.2 % (12-17); White Blood Count 8.6 10^3/uL (3.6-10.2)
[2024-02-29 06:06] LABS: Calcium 7.8 mg/dL (8.6-10.3); Creatinine, Serum 0.88 mg/dL (0.67-1.17); Magnesium 1.9 mg/dL (1.9-2.7); Potassium 4.3 mmol/L (3.5-5.0); eGFR CKD-EPI 83.7 (>60)
[2024-02-29 14:40] LABS: Folate 7.24 ng/mL (5.90-24.80)
[2024-02-29] MEDS: Acetaminophen IV 1 GM/100ML 1,000 MG/100 ML BAG IV ONE (17:02)
[2024-03-01 09:53] LABS: ABS Eosinophils 0.3 10^3/uL (0.0-0.5); ABS Monocytes 0.4 10^3/uL (0.0-1.1); ABS Neutrophils 5.1 10^3/uL (1.5-7.6); Eosinophil % 4.8 %; Hematocrit 26.7 % (38-53); Hemoglobin 9.2 g/dL (13.2-16.3); Lymphocyte % 14.3 %; Mean Corpuscular Hemoglobin 34.5 pg (27-33); Mean Corpuscular Hgb Conc 34.3 g/dL (31-36); Mean Corpuscular Volume 100.4 fL (80-97); Mean Platelet Volume 7.1 fL (7.5-11.2); Platelet Count 118 10^3/uL (150-450); Red Blood Count 2.66 10^6/uL (4.06-5.63); Red Cell Distribution Width 15.6 % (12-17); White Blood Count 6.9 10^3/uL (3.6-10.2)
[2024-03-01 10:02] LABS: Calcium 8.3 mg/dL (8.6-10.3); Creatinine, Serum 0.7 mg/dL (0.67-1.17); Magnesium 1.9 mg/dL (1.9-2.7); Potassium 4.4 mmol/L (3.5-5.0); eGFR CKD-EPI 89.7 (>60)
[2024-03-01] MEDS: Furosemide 20 mg/2 ml IV VIAL IV SLOW PU ONE (13:26)
[2024-03-02 07:25] LABS: Hematocrit 27.4 % (38-53); Hemoglobin 9.6 g/dL (13.2-16.3); Mean Corpuscular Hemoglobin 35.5 pg (27-33); Mean Corpuscular Hgb Conc 35.2 g/dL (31-36); Mean Corpuscular Volume 100.9 fL (80-97); Mean Platelet Volume 6.9 fL (7.5-11.2); Platelet Count 136 10^3/uL (150-450); Red Blood Count 2.71 10^6/uL (4.06-5.63); White Blood Count 7.6 10^3/uL (3.6-10.2)
[2024-03-02 15:41] LABS: Calcium 8.5 mg/dL (8.6-10.3); Creatinine, Serum 0.75 mg/dL (0.67-1.17); Potassium 4.1 mmol/L (3.5-5.0); eGFR CKD-EPI 87.9 (>60)
[2024-03-03 06:34] LABS: Hematocrit 25.8 % (38-53); Hemoglobin 9.2 g/dL (13.2-16.3); Mean Corpuscular Hemoglobin 35.8 pg (27-33); Mean Corpuscular Hgb Conc 35.6 g/dL (31-36); Mean Corpuscular Volume 100.6 fL (80-97); Mean Platelet Volume 6.6 fL (7.5-11.2); Platelet Count 144 10^3/uL (150-450); Red Blood Count 2.56 10^6/uL (4.06-5.63); Red Cell Distribution Width 15.2 % (12-17); White Blood Count 8.1 10^3/uL (3.6-10.2)
[2024-03-03 07:18] LABS: Calcium 8.4 mg/dL (8.6-10.3); Creatinine, Serum 0.69 mg/dL (0.67-1.17); Magnesium 1.8 mg/dL (1.9-2.7); Potassium 4.3 mmol/L (3.5-5.0); eGFR CKD-EPI 90.1 (>60)
[2024-03-03] MEDS: Magnesium Sulfate 2 gm BAG 2 GM/50 ML BAG IVPB ONE (08:18)
[2024-03-04 05:57] LABS: Hematocrit 26.3 % (38-53); Mean Corpuscular Hemoglobin 34.5 pg (27-33); Mean Corpuscular Hgb Conc 34.2 g/dL (31-36); Mean Corpuscular Volume 100.9 fL (80-97); Mean Platelet Volume 6.9 fL (7.5-11.2); Platelet Count 150 10^3/uL (150-450); Red Cell Distribution Width 14.9 % (12-17); White Blood Count 8.4 10^3/uL (3.6-10.2)
[2024-03-04 06:39] LABS: Calcium 8.4 mg/dL (8.6-10.3); Creatinine, Serum 0.62 mg/dL (0.67-1.17); Magnesium 1.8 mg/dL (1.9-2.7); Potassium 4.1 mmol/L (3.5-5.0); eGFR CKD-EPI 93.1 (>60)
[2024-03-05 05:54] LABS: Hematocrit 26.4 % (38-53); Mean Corpuscular Hemoglobin 34.2 pg (27-33); Mean Corpuscular Hgb Conc 33.9 g/dL (31-36); Mean Corpuscular Volume 100.8 fL (80-97); Mean Platelet Volume 6.5 fL (7.5-11.2); Platelet Count 142 10^3/uL (150-450); Red Blood Count 2.62 10^6/uL (4.06-5.63); White Blood Count 7.7 10^3/uL (3.6-10.2)
[2024-03-05 06:14] LABS: Calcium 8.4 mg/dL (8.6-10.3); Creatinine, Serum 0.62 mg/dL (0.67-1.17); Magnesium 1.8 mg/dL (1.9-2.7); Potassium 4.1 mmol/L (3.5-5.0); eGFR CKD-EPI 93.1 (>60)
[2024-03-05] MEDS: Senna TAB 8.6 mg TAB PO PRN (20:22)
[2024-03-06] MEDS: Magnesium Hydroxide LIQ 30 ML UDC PO PRN (10:05)
[2024-03-07 06:11] VITALS: BP 126/78
== END 2024-03-07 14:10 | disposition home or self-care (01) | DRG 481 ==
LOC: ED 17:04 → EDHOLD 17:04 → SUATTDRO 02-26 01:00 → SSU 02-26 02:07 → SUATTDRO 02-26 09:37
PROVIDERS: ADMIT Internal Medicine; ATTEND Hospitalist